=== PATIENT | female | born 1950 | race Caucasian/White ===

== ENCOUNTER 2018-03-06 07:41 | Inpatient (IN) | payer MEDICARE, MEDICAID ==
[2018-03-06] VITALS (8 sets, daily range): BP systolic 113–153; BP diastolic 59–90; PULSE 62–67; RESP 16–18; TEMP 98–98.4; O2SAT 92–99
[~2018-03-06] VITALS: Ht 149.9 cm; Wt 64.9 kg
[~2018-03-06 07:41] MED LIST: AMLO-280; CIPR500T4 PO; DIFL150T PO; GLUCTAB PO; MACR100C PO
[2018-03-06] MEDS ORDERED: ONDANSETRON HCL 4 MG/2 ML VIAL IVP ONE (08:30)
[2018-03-06] MEDS ORDERED: SODIUM CHLORIDE 0.9% FLUSH 10 ML FLUSH IV FLUSH PRN ×3 (08:30→13:45)
[2018-03-06] MEDS ORDERED: MORPHINE SULFATE 4 MG/ML INJ IV PUSH ONE (08:30)
--- NOTE | 2018-03-06 09:12 | PD ---
HPI . Chronic wound Chief Complaint: Wound/Suture/Staple Re-Check Time Seen by Provider: 08:07 Travel History International Travel<30 days: No Contact w/Intl Traveler<30days: No Traveled to known affect area: No History of Present Illness HPI This patient was sent to us by a rehab center for evaluation of a chronic wound on her right lower extremity. The nursing staff from rehab reported that they were concerned about the circulation in her right lower extremity. The patient is an extremely poor historian. She tells us that she has had the wound on her leg for "2 weeks." She does state that it is painful and rates it 10/10. The pain is exacerbated by palpation. Medical history is significant for end-stage renal disease on dialysis. She was supposed to be at dialysis today. She also has diabetes, hypertension, coronary artery disease, PAD, hepatitis C, depression/anxiety and dementia We have learned that the patient's armature varnisher is Dr. Rusty SCHUMACHER Past Medical History Anemia: Yes Anxiety: Yes Depression: Yes Congestive Heart Failure: Yes Coronary Artery Disease: Yes Diabetes: Yes Patient Takes Glucophage: No Dialysis: Yes Diminished Hearing: No Hepatitis: Yes (HEP C ) Past Surgical History Surgical History: Unable to Obtain Social History Alcohol Use: No Tobacco Use: No Substance Use: No Allergies-Medications (Allergen,Severity, Reaction): Coded Allergies: acetaminophen (Unverified Allergy, Unknown, 07/12/17) hydrocodone (Unverified Allergy, Unknown, 07/12/17) vomiting penicillin G (Unverified Allergy, Unknown, 07/12/17) hives Reported Meds & Prescriptions Reported Meds & Active Scripts Active Macrobid (Nitrofurantoin Macrocrystals) 100 Mg Cap 100 Mg PO BID Diflucan (Fluconazole) 150 Mg Tab 150 Mg PO Q3D Cipro (Ciprofloxacin HCl) 500 Mg Tab 500 Mg PO BID PRN Reported Metformin Hcl (Metformin HCl) 500 Mg Tab 500 Mg PO BID Exforge Hct (Ezretincco-Yqtfwdmpz-Dvywgosgd) 1 Tab Tab Review of Systems ROS Limitations: Poor Historian Physical Exam Narrative GENERAL: Awake and alert. SKIN: warm/dry. Large eschar on the right lateral prieto. It is deep and necrotic appearing. The eschar is black. The skin of her right foot is a little cool to the touch but not markedly so. There is a muriel discoloration. HEAD: Normocephalic. EYES: Pupils equal and round. No scleral icterus. No injection or drainage. ENT: No nasal bleeding or discharge. Mucous membranes pink and moist. NECK: Trachea midline. Full range of motion without pain.. CARDIOVASCULAR: Regular rate and rhythm. Right pedal pulses cannot be obtained with Doppler. RESPIRATORY: No accessory muscle use. Clear to auscultation. Breath sounds equal bilaterally. MUSCULOSKELETAL: No obvious deformities. NEUROLOGICAL: Awake and alert. No obvious cranial nerve deficits. Motor grossly within normal limits. Normal speech. PSYCHIATRIC: Appropriate mood and affect; insight and judgment normal. Data Data Last Documented VS Vital Signs Date Time Temp Pulse Resp B/P (MAP) Pulse Ox O2 Delivery O2 Flow Rate FiO2 03/06/18 08:07 67 18 03/06/18 08:07 98.0 125/60 (81) 93 Room Air Orders Orders Basic Metabolic Panel (Bmp) (03/06/18 08:19) Complete Blood Count With Diff (03/06/18 08:19) Lactic Acid (03/06/18 08:19) Iv Access Insert/Monitor (03/06/18 08:19) Morphine Inj (Morphine Inj) (03/06/18 08:30) Ondansetron Inj (Zofran Inj) (03/06/18 08:30) Sodium Chloride 0.9% Flush (Ns Flush) (03/06/18 08:30) Tibia/Fibula (Ap/Lat) (03/06/18 09:49) Labs Laboratory Tests Test 03/06/18 09:01 White Blood Count 11.0 TH/MM3 Red Blood Count 3.22 MIL/MM3 Hemoglobin 8.7 GM/DL Hematocrit 28.3 % Mean Corpuscular Volume 87.8 FL Mean Corpuscular Hemoglobin 26.9 PG Mean Corpuscular Hemoglobin Concent 30.6 % Red Cell Distribution Width 19.8 % Platelet Count 414 TH/MM3 Mean Platelet Volume 8.0 FL Neutrophils (%) (Auto) 83.6 % Lymphocytes (%) (Auto) 10.8 % Monocytes (%) (Auto) 4.5 % Eosinophils (%) (Auto) 0.4 % Basophils (%) (Auto) 0.7 % Neutrophils # (Auto) 9.2 TH/MM3 Lymphocytes # (Auto) 1.2 TH/MM3 Monocytes # (Auto) 0.5 TH/MM3 Eosinophils # (Auto) 0.0 TH/MM3 Basophils # (Auto) 0.1 TH/MM3 CBC Comment DIFF FINAL Differential Comment Blood Urea Nitrogen 40 MG/DL Creatinine 6.46 MG/DL Random Glucose 140 MG/DL Calcium Level 9.7 MG/DL Sodium Level 139 MEQ/L Potassium Level 4.5 MEQ/L Chloride Level 101 MEQ/L Carbon Dioxide Level 24.2 MEQ/L Anion Gap 14 MEQ/L Estimat Glomerular Filtration Rate 6 ML/MIN Lactic Acid Level 1.4 mmol/L MDM Medical Decision Making Medical Screen Exam Complete: Yes Emergency Medical Condition: Yes Medical Record Reviewed: Yes (She has a paucity of records in our system. She does have an ultrasound report that was sent with her from rehab which is dated 02/21. The report says that there is no blood flow through the right superficial femoral artery.) Differential Diagnosis Differential diagnosis includes but is not limited to chronic PAD, acute arterial occlusion, partial arterial occlusion Narrative Course This patient presents for the evaluation of blood flow to her right lower extremity. Ideally, we would get a CTA of her aorta with runoff studies. However, this patient is on dialysis. Thus far, I cannot be assured that she will dialyze today. I have ordered basic labs. I suspect that she will need to be admitted to the hospital for further evaluation of her arterial blood flow. I suspect that she will eventually need at least a BKA on the right. CBC & BMP Diagram 03/06/18 09:01 Calcium Level 9.7 LA 1.4 A normal white blood count and a normal lactic acid leads me to believe that her problems are chronic rather than acute. However, she needs further interrogation of her arterial blood flow to her right lower extremity. She may very well need an amputation. Therefore, I will ask for admission to the hospital. Physician Communication Physician Communication Dr. Contreras Diagnosis Primary Impression: PAD (peripheral artery disease) Additional Impression: Ulcer of right lower leg Qualified Codes: L97.919 - Non-pressure chronic ulcer of unspecified part of right lower leg with unspecified severity Admitting Information Admitting Physician Requests: Observation Condition: Stable Dulce Fields MD Mar 06, 2018 09:12
[2018-03-06 09:17] LABS: AUTOMATED NEUTROPHIL # 9.2 TH/MM3 (1.8-7.7); BASOPHIL # 0.1 TH/MM3 (0-0.2); BASOPHIL % 0.7 % (0.0-2.0); EOSINOPHIL % 0.4 % (0.0-4.0); HEMATOCRIT 28.3 % (35.0-46.0); HEMOGLOBIN 8.7 GM/DL (11.6-15.3); LYMPH % 10.8 % (9.0-44.0); LYMPHOCYTE # 1.2 TH/MM3 (1.0-4.8); MEAN CELL VOLUME 87.8 FL (80.0-100.0); MEAN CORPUSCULAR HEMOGLOBIN 26.9 PG (27.0-34.0); MEAN CORPUSCULAR HGB CONC 30.6 % (32.0-36.0); MONO % 4.5 % (0.0-8.0); MONOCYTE # 0.5 TH/MM3 (0-0.9); NEUT % 83.6 % (16.0-70.0); PLATELET COUNT 414 TH/MM3 (150-450); RED BLOOD COUNT 3.22 MIL/MM3 (4.00-5.30); RED CELL DISTRIBUTION WIDTH 19.8 % (11.6-17.2)
[2018-03-06 09:36] LABS: BICARBONATE 24.2 MEQ/L (21.0-32.0); CALCIUM 9.7 MG/DL (8.5-10.1); CREATININE 6.46 MG/DL (0.50-1.00)
--- NOTE | 2018-03-06 10:29 | HHI.HP ---
[facility] Service Family Medicine Primary Care Physician Vega Rankin MD Admission Diagnosis Pulseless RLE Diagnoses: International Travel<30 Days: No Contact w/Intl Traveler<30days: No Known Affected Area: No History of Present Illness The patient is 67 year old female who presents to the ED from [facility] for evaluation of a chronic wound on her right lower extremity. Per patient, she has had the wound for approximately three week. Patient, at baseline, is alert but confused. She is a poor historian. Rehabilitation facility was contacted for history. Patient has recently been hospitalized at [facility], where she received treatment for cellulitis and her chronic ulcer on the right lower extremity; management included wound vac. She was discharged on February 16 and admitted to [facility]. A lower extremity Doppler , performed on 02/21, found occlusion of the right superficial femoral artery. The rehab facility had since been trying to make an appointment for patient with vascular surgery. Of note, patient has ESRD and receives dialysis on MWF at [facility] in [place]. Patient's first crusher is Dr. Ojeda. Patient underwent psych evaluation while at rehab facility; she was found to be very depressed, suffer from excessive worry and anxiety, delusions and paranoia. She was also noted to have cognitive impairment. (Christina Munoz MD R1) Review of Systems ROS Limitations: Poor Historian (Negative ROS except pain involving right lower extremity ulcer. 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 Reported Medications Zinc Sulfate 220 Mg Tab 220 Mg PO DAILY Vitamin C (Ascorbic Acid) 250 Mg Chew 500 Mg CHEW BID Tramadol (Tramadol HCl) 50 Mg Tab 50 Mg PO Q6H PRN Renvela (Sevelamer Carbonate) 800 Mg Tab 800 Mg PO TID Quetiapine (Quetiapine Fumarate) 50 Mg Tab 50 Mg PO HS Quetiapine (Quetiapine Fumarate) 25 Mg Tab 25 Mg PO BID Nitroglycerin SL (Nitroglycerin) 0.4 Mg Subl 0.4 Mg SL DIRECTED PRN Nephro-José Miguel Rx (Vitamin B Cmplx/Vit C/Folic AC) 1 Tab 1 Tab PO DAILY Multi-Vitamin Daily (Multiple Vitamin) 1 Tab Tab 1 Tab PO DAILY Losartan (Losartan Potassium) 25 Mg Tab 25 Mg PO DAILY Lactulose Liq (Lactulose) 10 Gm/15 Ml Soln 15 Ml PO BID Isosorbide Mononitrate 20 Mg Tab 30 Mg PO DAILY Humalog Inj (Insulin Human Lispro) 1,000 Unit/10 Ml Vial 5 Units SQ DAILY Lantus Inj (Insulin Glargine) 1,000 Unit/10 Ml Vial 20 Units SQ HS Furosemide 40 Mg Tab 40 Mg PO BID Effexor XR 24 HR (Venlafaxine HCl) 75 Mg Cap 75 Mg PO DAILY Clopidogrel (Clopidogrel Bisulfate) 75 Mg Tab 75 Mg PO DAILY Carvedilol 12.5 Mg Tab 12.5 Mg PO BID Atorvastatin (Atorvastatin Calcium) 40 Mg Tab 40 Mg PO HS Aspirin 81 Low Dose (Aspirin) 81 Mg Chew 81 Mg CHEW DAILY Amiodarone (Amiodarone HCl) 200 Mg Tab 200 Mg PO DAILY Alprazolam 0.25 Mg Tab 0.25 Mg PO BID PRN (Christina Munoz MD R1) Allergies: Coded Allergies: acetaminophen (Unverified Allergy, Unknown, 07/12/17) hydrocodone (Unverified Allergy, Unknown, 07/12/17) vomiting penicillin G (Unverified Allergy, Unknown, 07/12/17) hives Active Ordered Medications Current Medications Medications (Trade) Dose Ordered Sig/Rica Route Start Time Stop Time Status Last Admin (NS Flush) 2 ml UNSCH PRN IV FLUSH 03/06/18 10:45 (NS Flush) 2 ml BID IV FLUSH 03/06/18 21:00 Sodium Chloride 1,000 ml @ 0 mls/hr Q0M PRN OTHER 03/06/18 13:41 (Heparin Inj) 8,000 units UNSCH PRN IV FLUSH 03/06/18 13:45 Sodium Chloride 1,000 ml @ 200 mls/hr Q5H PRN IV 03/06/18 13:41 Sodium Chloride 1,000 ml @ 0 mls/hr Q0M PRN OTHER 03/06/18 13:41 (Mannitol Inj) 12.5 gm UNSCH PRN IV 03/06/18 13:45 Albumin Human 100 ml @ 60 mls/hr UNSCH PRN IV 03/06/18 13:45 (NS Flush) 5 ml UNSCH PRN IV FLUSH 03/06/18 13:45 (Heparin Inj) UNSCH PRN .XX 03/06/18 13:45 (Gentamicin Inj) 20 mg UNSCH PRN OTHER 03/06/18 13:45 (Zofran Inj) 4 mg UNSCH PRN IV PUSH 03/06/18 13:45 (Benadryl) 25 mg UNSCH PRN PO 03/06/18 13:45 (Nitrostat Sl) 0.4 mg UNSCH PRN SL 03/06/18 13:45 (Catapres) 0.1 mg UNSCH PRN PO 03/06/18 13:45 (Epogen Inj) 4,000 units UNSCH PRN IV PUSH 03/06/18 13:45 (Gelfoam 12 Mm/7 Mm Top) 1 foam UNSCH PRN TOP 03/06/18 13:45 (Zofran Inj) 4 mg Q6H PRN IVP 03/06/18 14:45 (Ultram) 50 mg Q4H PRN PO 03/06/18 14:45 (Ultram) 100 mg Q4H PRN PO 03/06/18 14:45 (Narcan Inj) 0.4 mg UNSCH PRN IV PUSH 03/06/18 14:45 (Shonda-Colace) 1 tab BID PO 03/06/18 21:00 (Milk Of Magnesia Liq) 30 ml Q12H PRN PO 03/06/18 14:45 (Senokot) 17.2 mg Q12H PRN PO 03/06/18 14:45 (Dulcolax Supp) 10 mg DAILY PRN RECTAL 03/06/18 14:45 (Lactulose Liq) 30 ml DAILY PRN PO 03/06/18 14:45 (Xanax) 0.25 mg BID PRN PO 03/06/18 15:00 (Cordarone) 200 mg DAILY PO 03/07/18 09:00 (Aspirin Chew) 81 mg DAILY CHEW 03/07/18 09:00 (Lipitor) 40 mg HS PO 03/06/18 21:00 (Coreg) 12.5 mg BID PO 03/06/18 21:00 (Lasix) 40 mg BID PO 03/06/18 21:00 UNV (Ismo) 30 mg DAILY PO 03/07/18 09:00 UNV (Lactulose Liq) 15 ml BID PO 03/06/18 21:00 (Cozaar) 25 mg DAILY PO 03/07/18 09:00 UNV (Nitrostat Sl) 0.4 mg Q5M PRN SL 03/06/18 15:00 UNV (SEROquel) 25 mg BID PO 03/06/18 21:00 UNV (Effexor Xr) 75 mg DAILY PO 03/07/18 09:00 (Nephrocaps) 1 cap DAILY PO 03/07/18 09:00 (Zinc Sulfate) 220 mg DAILY PO 03/07/18 09:00 (Vitamin C) 500 mg BID PO 03/06/18 21:00 (Theragran) 1 tab DAILY PO 03/07/18 09:00 Non-Formulary Medication 50 mg HS PO 03/06/18 21:00 UNV (Levemir Inj) 10 units HS SQ 03/06/18 21:00 (NovoLOG SUPPLEMENTAL SCALE) 1 ACHS SLIDING SCALE SQ 03/06/18 17:00 UNV Sodium Thiosulfate 83756 mg/Sterile Water 200 ml @ 150 mls/hr WITH DIALYSIS PRN IV 03/06/18 15:30 UNV (Renvela) 1,600 mg TID PO 03/06/18 18:00 UNV Family History Unable to obtain. Social History Has been living at [facility] since February 16, following discharge from [facility]. (Christina Munoz MD R1) Physical Exam Vital Signs Vital Signs Date Time Temp Pulse Resp B/P (MAP) Pulse Ox O2 Delivery O2 Flow Rate FiO2 03/06/18 13:50 63 17 133/59 (83) 97 03/06/18 11:43 Room Air 03/06/18 08:07 98.0 Physical Exam GENERAL: This is a well-nourished, well-developed patient, in no apparent distress. SKIN: Warm and dry. See below for description of right LE. HEAD: Atraumatic. Normocephalic. EYES: Pupils equal round. Extraocular motions intact. No scleral icterus. No injection or drainage. ENT: Nose without bleeding, purulent drainage or septal hematoma. Airway patent. NECK: Trachea midline. No JVD or lymphadenopathy. Supple, nontender, no meningeal signs. CARDIOVASCULAR: Regular rate and rhythm without murmurs, gallops, or rubs. RESPIRATORY: Clear to auscultation. Breath sounds equal bilaterally. No wheezes , rales, or rhonchi. GASTROINTESTINAL: Abdomen soft, non-tender, nondistended. No hepato-splenomegaly , or palpable masses. No guarding. MUSCULOSKELETAL: Large, dry ulceration with eschar on the right anterior to lateral lower extremity, extending from below knee to above ankle. Edema of right foot noted. Right foot also with dry scaly skin. Palpable right and left femoral pulses. Nonpalpable right dorsalis pedis and posterior tibialis pulses. Capillary refill normal except delayed in right second phalanx. Motor function of left foot intact but patient not wiggling toes on right - unsure of ability. Sensation appears to be intact bilaterally. NEUROLOGICAL: Awake and confused. Cranial nerves II through XII intact. Normal speech. Laboratory Laboratory Tests Test 03/06/18 09:01 White Blood Count 11.0 Red Blood Count 3.22 Hemoglobin 8.7 Hematocrit 28.3 Mean Corpuscular Volume 87.8 Mean Corpuscular Hemoglobin 26.9 Mean Corpuscular Hemoglobin Concent 30.6 Red Cell Distribution Width 19.8 Platelet Count 414 Mean Platelet Volume 8.0 Neutrophils (%) (Auto) 83.6 Lymphocytes (%) (Auto) 10.8 Monocytes (%) (Auto) 4.5 Eosinophils (%) (Auto) 0.4 Basophils (%) (Auto) 0.7 Neutrophils # (Auto) 9.2 Lymphocytes # (Auto) 1.2 Monocytes # (Auto) 0.5 Eosinophils # (Auto) 0.0 Basophils # (Auto) 0.1 CBC Comment DIFF FINAL Differential Comment Blood Urea Nitrogen 40 Creatinine 6.46 Random Glucose 140 Calcium Level 9.7 Sodium Level 139 Potassium Level 4.5 Chloride Level 101 Carbon Dioxide Level 24.2 Anion Gap 14 Estimat Glomerular Filtration Rate 6 Lactic Acid Level 1.4 (Christina Munoz MD R1) Result Diagram: 03/06/18 0903/06/18 09 Caprini VTE Risk Assessment Caprini VTE Risk Assessment: Mod/High Risk (score >= 2) Caprini Risk Assessment Model Point Value = 1 Point Value = 2 Point Value = 3 Point Value = 5 Age 41-60 Minor surgery BMI > 25 kg/m2 Swollen legs Varicose veins or History of unexplained or recurrent spontaneous Oral contraceptives or hormone replacement Sepsis (< 1 month) Serious lung disease, including pneumonia (< 1 month) Abnormal pulmonary function Acute myocardial infarction Congestive heart failure (< 1 month) History of inflammatory bowel disease Medical patient at bed rest Age 61-74 Arthroscopic surgery Major open surgery (> 45 min) Laparoscopic surgery (> 45 min) Malignancy Confined to bed (> 72 hours) Immobilizing plaster cast Central venous access Age >= 75 History of VTE Family history of VTE Factor V Leiden Prothrombin [id number] Lupus anticoagulant Anticardiolipin antibodies Elevated serum homocysteine Heparin-induced thrombocytopenia Other congenital or acquired thrombophilia Stroke (< 1 month) Elective arthroplasty Hip, pelvis, or leg fracture Acute spinal cord injury (< 1 month) Prophylaxis Regimen Total Risk Factor Score Risk Level Prophylaxis Regimen 0-1 Low Early ambulation 2 Moderate Order ONE of the following: *Sequential Compression Device (SCD) *Heparin 5000 units SQ BID 3-4 Higher Order ONE of the following medications: *Heparin 5000 units SQ TID *Enoxaparin/Lovenox 40 mg SQ daily (WT < 150 kg, CrCl > 30 mL/min) *Enoxaparin/Lovenox 30 mg SQ daily (WT < 150 kg, CrCl > 10-29 mL/min) *Enoxaparin/Lovenox 30 mg SQ BID (WT < 150 kg, CrCl > 30 mL/min) AND/OR *Sequential Compression Device (SCD) 5 or more Highest Order ONE of the following medications: *Heparin 5000 units SQ TID (Preferred with Epidurals) *Enoxaparin/Lovenox 40 mg SQ daily (WT < 150 kg, CrCl > 30 mL/min) *Enoxaparin/Lovenox 30 mg SQ daily (WT < 150 kg, CrCl > 10-29 mL/min) *Enoxaparin/Lovenox 30 mg SQ BID (WT < 150 kg, CrCl > 30 mL/min) AND *Sequential Compression Device (SCD) (Christina Munoz MD R1) Assessment and Plan Assessment and Plan The patient is 67 year old female who presents to the ED from [facility] for evaluation of a chronic wound on her right lower extremity. No dorsalis pedis and posterior tibialis pulses palpable on right. Vascular surgery consulted. Code Status Full code. Discussed Condition With Drs. Johnson and Annette. (Christina Munoz MD R1) Attending Attestation Patient seen, examined, and discussed with Dr Munoz, while in the ER. I agree with assessment and management as documented and discussed with me. The patient has been seen and examined. The chart and all resident notes have been reviewed. I agree that inpatient care is appropriate and that a two midnight stay is expected for the reasons documented in the resident history and physical. I have discussed this with the resident and certify the resident s order for inpatient admission. Pt admitted from SNF after hospitalization at outside hospital. She is a poor historian, and no significant history is available. She is admitted for right lateral calf wound/ulcer, which is appears arterial in nature. CV surgery consulted; CTA reviewed. (Steffany Johnson MD) Problem List: (1) Ulcer of right lower leg ICD Codes: L97.919 - Non-pressure chronic ulcer of unspecified part of right lower leg with unspecified severity Status: Chronic Plan: Patient with large, dry ulceration with eschar on the right anterior to lateral lower extremity, extending from below knee to above ankle. Nonpalpable right dorsalis pedis and posterior tibialis pulses. Capillary refill delayed in right second phalanx. Patient with history of PAD. Likely contributing to chronic ulcer on right anterior-lateral lower extremity. Per report from rehabilitation facility, a lower extremity Doppler, performed on 02/21, found occlusion of the right superficial femoral artery. Orders: * Consult vascular surgery: Planning a R LE angiogram with potential revascularization for early this week; continue wound care, continue pain control. * Consult wound care. Awaiting recommendations. Recommendations per records from rehabilitation facility: cleanse right lateral calf wound with NS, apply Dakin solution 1/4 strength, wet/moist cover with ABD wrap with andree BID. * Consult PT. Evaluate and treat. Imaging: * CTA Runoff with IV Contrast to be completed today prior to dialysis. Medications: * Tramadol 50mg q4hr PO PRN Pain 1-10. * Tramadol 100mg q4hr PO PRN Breakthrough pain. (2) PAD (peripheral artery disease) ICD Codes: I73.9 - Peripheral vascular disease, unspecified Status: Chronic Plan: Patient with history of PAD. Likely contributing to chronic ulcer on right anterior-lateral lower extremity. * See Plan for Ulcer of right lower leg. (3) ESRD (end stage renal disease) on dialysis ICD Codes: N18.6 - End stage renal disease; Z99.2 - Dependence on renal dialysis Status: Chronic Plan: Patient with history of ESRD. She receives dialysis on MWF at [facility] in [place]. Patient's first crusher is Dr. Ojeda. * Consult nephrology. * Dialysis per nephrology. (4) Diabetes mellitus ICD Codes: E11.9 - Type 2 diabetes mellitus without complications Plan: Patient with history of DM Type II; recent HgbA1C 8.2. * Levemir 10 units HS. * Low dose sliding scale. * May consider increasing to home regimen after 24hr blood glucose monitoring. (5) Cardiovascular disease ICD Codes: I25.10 - Atherosclerotic heart disease of [place] coronary artery without angina pectoris Plan: Patient with history of CHF (combined systolic and diastolic), CAD and HTN. * Continue home medications. (6) Hepatitis C ICD Codes: B19.20 - Unspecified viral hepatitis C without hepatic coma Status: Chronic Plan: Patient with history of chronic hepatitis C; disease course unknown. * CMP in a.m. (7) Psychiatric disorder ICD Codes: F99 - Mental disorder, not otherwise specified Status: Chronic Plan: Patient with history of psychotic disorder with delusions (unknown psychological condition), depression, dementia. Alert but confused at baseline per rehabilitation facility. * Continue home medications. (8) Fluid, Electrolyte, Nutrition, and Prophylaxis Status: Acute Plan: Fluid: * Not indicated at this time. Electrolyte: * Monitor and replete as necessary. Nutrition: * Renal diet. Prophylaxis: * SCD on left. * Held Heparin for possible revascularization procedure and Hgb 8.7. (Christina Munoz MD R1) Problem Qualifiers (1) Ulcer of right lower leg: Qualified Codes: L97.919 - Non-pressure chronic ulcer of unspecified part of right lower leg with unspecified severity Christina Munoz MD R1 Mar 06, 2018 10:28 Steffany Johnson MD Mar 06, 2018 20:24
--- NOTE | 2018-03-06 10:31 | RADRPT ---
EXAM DATE/TIME: 03/06/2018 09:58 [facility] COMPARISON: No previous studies available for comparison. INDICATIONS : Right tib/fib anterior asceptic necrosis. MEDICAL HISTORY : Diabetes. SURGICAL HISTORY : None. ENCOUNTER: Initial ACUITY: 1 day PAIN SCORE: 9/10 LOCATION: Right tib/fib FINDINGS: Osseous structures are osteopenic. There is no bony destruction or periosteal reaction to suggest ost eomyelitis. Prominent vascular calcification is present. Joint spaces are maintained. CONCLUSION: Negative examination of the tibia Ludwig Titus MD on March 06, 2018 at 10:26 Board Certified Radiologist. This report was verified electronically.
[2018-03-06] MEDS ORDERED: AMIO200T PO (12:04)
[2018-03-06] MEDS ORDERED: HUMALOG SQ (12:04)
[2018-03-06] MEDS ORDERED: LACT10SO PO (12:04)
[2018-03-06] MEDS ORDERED: VENL75XR PO (12:04)
[2018-03-06] MEDS ORDERED: ISOS20TA PO (12:04)
[2018-03-06] MEDS ORDERED: CLOP75TA PO (12:04)
[2018-03-06] MEDS ORDERED: FURO40TA PO (12:04)
[2018-03-06] MEDS ORDERED: ASPI1CHW4 CHEW (12:04)
[2018-03-06] MEDS ORDERED: NITR1SUB3 SL (12:04)
[2018-03-06] MEDS ORDERED: QUET1TAB7 PO (12:04)
[2018-03-06] MEDS ORDERED: NEPHRO PO (12:04)
[2018-03-06] MEDS ORDERED: SEVEL800 PO (12:04)
[2018-03-06] MEDS ORDERED: VITA250C3 CHEW (12:04)
[2018-03-06] MEDS ORDERED: ALPR0.25 PO (12:04)
[2018-03-06] MEDS ORDERED: ZINC220T PO (12:04)
[2018-03-06] MEDS ORDERED: TRAM50TA PO (12:04)
[2018-03-06] MEDS ORDERED: ATOR40TA16 PO (12:04)
[2018-03-06] MEDS ORDERED: MULT-65 PO (12:04)
[2018-03-06] MEDS ORDERED: QUET5TAB PO (12:04)
[2018-03-06] MEDS ORDERED: CARV12.52 PO (12:04)
[2018-03-06] MEDS ORDERED: LANTUS2P SQ (12:04)
[2018-03-06] MEDS ORDERED: LOSA25TA PO (12:04)
[2018-03-06] MEDS ORDERED: SODIUM CHLOR 0.9% 1000 ML INJ 1,000 ML IV PRN (13:41)
[2018-03-06] MEDS ORDERED: SODIUM CHLOR 0.9% 1000 ML INJ 1,000 ML OTHER PRN ×2 (13:41)
--- NOTE | 2018-03-06 13:44 | PD.VS.CON ---
History of Present Illness Chief Complaint: Large Non healing R LE ulceration for an unknown duration Non palpable R LE distal pulses Consult Requested by: Dr. 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 Family History Unable to obtain (Tahmina Hoffmann) Home Medications Reported Medications Zinc Sulfate (Zinc Sulfate) 220 Mg Tab, 220 MG PO DAILY for Nutritional Supplement, TAB 0 Refills 03/06/18 Ascorbic Acid (Vitamin C) 250 Mg Chew, 500 MG CHEW BID for Nutritional Supplement, TAB 0 Refills 03/06/18 Tramadol (Tramadol) 50 Mg Tab, 50 MG PO Q6H Y for PAIN, TAB 0 Refills 03/06/18 Sevelamer Carbonate (Renvela) 800 Mg Tab, 800 MG PO TID for Control phosphorous levels, TAB 0 Refills 03/06/18 Quetiapine (Quetiapine) 50 Mg Tab, 50 MG PO HS, TAB 0 Refills 03/06/18 Quetiapine (Quetiapine) 25 Mg Tab, 25 MG PO BID, TAB 0 Refills 03/06/18 Nitroglycerin SL (Nitroglycerin SL) 0.4 Mg Subl, 0.4 MG SL DIRECTED Y for CHEST PAIN, TAB.SL 0 Refills ONE TABLET UNDER THE TONGUE NEEDED FOR CHEST PAIN, MAY REPEAT EVERY FIVE MINUTES FOR A TOTAL OF 3 DOSES OR CALL 911 IF NO RELIEF 03/06/18 Vitamin B Cmplx/Vit C/Folic AC (Nephro-José Miguel Rx) 1 Tab, 1 TAB PO DAILY, TAB 4/9/18 Multiple Vitamin (Multi-Vitamin Daily) 1 Tab Tab, 1 TAB PO DAILY for Nutritional Supplement, TAB 0 Refills 03/06/18 Losartan (Losartan) 25 Mg Tab, 25 MG PO DAILY for Blood Pressure Management, TAB 0 Refills 03/06/18 Lactulose Liq (Lactulose Liq) 10 Gm/15 Ml Soln, 15 ML PO BID, ML 0 Refills 03/06/18 Isosorbide Mononitrate (Isosorbide Mononitrate) 20 Mg Tab, 30 MG PO DAILY for Prevent Chest Pain, TAB 0 Refills Take 2 doses 7 hours apart. 03/06/18 Insulin Lispro (Human) Inj (Humalog Inj) 1,000 Unit/10 Ml Vial, 5 UNITS SQ DAILY for Blood Sugar Management, #1 VIAL 0 Refills 03/06/18 Insulin Glargine Inj (Lantus Inj) 1,000 Unit/10 Ml Vial, 20 UNITS SQ HS for Blood Sugar Management, VIAL 0 Refills 03/06/18 Furosemide (Furosemide) 40 Mg Tab, 40 MG PO BID, TAB 0 Refills 03/06/18 Venlafaxine ER 24 HR (Effexor XR 24 HR) 75 Mg Cap, 75 MG PO DAILY, CAP 0 Refills 03/06/18 Clopidogrel (Clopidogrel) 75 Mg Tab, 75 MG PO DAILY for Blood Clot Prevention, TAB 0 Refills 03/06/18 Carvedilol (Carvedilol) 12.5 Mg Tab, 12.5 MG PO BID, TAB 0 Refills 03/06/18 Atorvastatin (Atorvastatin) 40 Mg Tab, 40 MG PO HS for Cholesterol Management, TAB 0 Refills 03/06/18 Aspirin (Aspirin 81 Low Dose) 81 Mg Chew, 81 MG CHEW DAILY, TAB 03/06/18 Amiodarone (Amiodarone) 200 Mg Tab, 200 MG PO DAILY for Regulate Heart Beat, TAB 0 Refills 03/06/18 Alprazolam (Alprazolam) 0.25 Mg Tab, 0.25 MG PO BID Y for ANXIETY, TAB 0 Refills 03/06/18 Coded Allergies: acetaminophen (Unverified Allergy, Unknown, 07/12/17) hydrocodone (Unverified Allergy, Unknown, 07/12/17) vomiting penicillin G (Unverified Allergy, Unknown, 07/12/17) hives Review of Systems ROS Limitations: Poor Historian Constitutional: DENIES: Fever, Chills Cardiovascular: COMPLAINS OF: Lower Extremity Edema (Right foot with 1+ pitting edema ), DENIES: Claudication Integumentary: COMPLAINS OF: Abnormal pigmentation (Dry large ulceration with eschar (anterior to lateral aspect of R LE) ) Psychiatric: COMPLAINS OF: Confusion (Tahmina Hoffmann) Physical Exam Vitals/I&O Date Time Temp Pulse Resp B/P (MAP) Pulse Ox O2 Delivery O2 Flow Rate FiO2 03/06/18 11:43 65 18 133/59 (83) 94 Room Air 03/06/18 08:07 67 18 03/06/18 08:07 98.0 67 18 125/60 (81) 93 Room Air 03/06/18 08:02 98.0 67 18 125/60 (81) 94 Neuro: Alert and confused HEENT: JOSE Neck: No JVD distention Heart: RRR Lungs: CTA Abdomen: S/NT Vascular: PALPABLE R/L Femoral pulses NON palpable RIGHT DP/PT Monophasic RIGHT DP Faint monophasic RIGHT PT Biphasic LEFT DP/PT LE warm w/ motor intact Large dry ulceration with eschar (anterior to lateral aspect) from below the knee to ankle region Ulceration appears chronic (Tahmina Hoffmann) Laboratory Tests Test 03/06/18 09:01 White Blood Count 11.0 Red Blood Count 3.22 Hemoglobin 8.7 Hematocrit 28.3 Mean Corpuscular Volume 87.8 Mean Corpuscular Hemoglobin 26.9 Mean Corpuscular Hemoglobin Concent 30.6 Red Cell Distribution Width 19.8 Platelet Count 414 Mean Platelet Volume 8.0 Neutrophils (%) (Auto) 83.6 Lymphocytes (%) (Auto) 10.8 Monocytes (%) (Auto) 4.5 Eosinophils (%) (Auto) 0.4 Basophils (%) (Auto) 0.7 Neutrophils # (Auto) 9.2 Lymphocytes # (Auto) 1.2 Monocytes # (Auto) 0.5 Eosinophils # (Auto) 0.0 Basophils # (Auto) 0.1 CBC Comment DIFF FINAL Differential Comment Blood Urea Nitrogen 40 Creatinine 6.46 Random Glucose 140 Calcium Level 9.7 Sodium Level 139 Potassium Level 4.5 Chloride Level 101 Carbon Dioxide Level 24.2 Anion Gap 14 Estimat Glomerular Filtration Rate 6 Lactic Acid Level 1.4 Last 48 hours Impressions Tibia/Fibula X-Ray 03/06/18 0949 Signed Impressions: Service Date/Time: Tuesday, March 06, 2018 09:58 - CONCLUSION: Negative examination of the tibia Ludwig Titus MD (Tahmina Hoffmann) Assessment and Plan Assessment: (1) PAD (peripheral artery disease) Status: Chronic (2) Ulcer of right lower leg Status: Chronic Plan Pleasantly confused 67/F who appears to have a chronic non healing ulceration to her R LE Pt with non palpable distal pulses LE warm w/ motor intact Plan Planning a R LE angiogram with potential revascularization for early this week Continue wound care Continue pain control Tahmina Hoffmann CRM CAMPAIGN MANAGER [facility] [phone] (Tahmina Hoffmann) Plan Pt with extensive R LE tissue loss by report - she would not allow me to undress the wound today. Unclear if she ambulates given dementia. Will see wound with next wound change, coordinate with wound care. Will follow. Jermaine Zamarripa MD FACS [employer]PV[employer] service transformer repair supervisor [facility] - Heart and Vascular Surgery at [facility] [address] [phone] (Jermaine Zamarripa MD) Problem Qualifiers (1) Ulcer of right lower leg: Qualified Codes: L97.919 - Non-pressure chronic ulcer of unspecified part of right lower leg with unspecified severity Tahmina Hoffmann Mar 06, 2018 13:44 Jermaine Zamarripa MD Mar 07, 2018 07:57
[2018-03-06] MEDS ORDERED: cloNIDine HCL 0.1 MG TAB PO PRN (13:45)
[2018-03-06] MEDS ORDERED: GELATIN 12 MM/7 MM FOAM TOP PRN (13:45)
[2018-03-06] MEDS ORDERED: NITROGLYCERIN 0.4 MG SL 25 TABS/BTL SL PRN ×2 (13:45→15:00)
[2018-03-06] MEDS ORDERED: diphenhydrAMINE HCL 25 MG CAP PO PRN (13:45)
[2018-03-06] MEDS ORDERED: GENTAMICIN SULFATE 20 MG/2 ML VIAL OTHER PRN (13:45)
[2018-03-06] MEDS ORDERED: ONDANSETRON HCL 4 MG/2 ML VIAL IV PUSH PRN (13:45)
[2018-03-06] MEDS ORDERED: MANNITOL 12.5 GM/50 ML VIAL IV PRN (13:45)
[2018-03-06] MEDS ORDERED: HEPARIN SODIUM - IV 10,000 UNITS/10 ML VIAL PRN (13:45)
[2018-03-06] MEDS ORDERED: EPOETIN ALFA 10,000 UNITS/ML VIAL IV PUSH PRN (13:45)
[2018-03-06] MEDS ORDERED: ALBUMIN 25% INJ 100 ML IV PRN (13:45)
[2018-03-06] MEDS ORDERED: HEPARIN SODIUM - IV 10,000 UNITS/10 ML VIAL IV FLUSH PRN (13:45)
[2018-03-06] MEDS ORDERED: LACTULOSE SYRUP 20 GM/30 ML CUP PO PRN (14:45)
[2018-03-06] MEDS ORDERED: traMADol HCL 50 MG TAB PO PRN ×2 (14:45)
[2018-03-06] MEDS ORDERED: SENNOSIDES 8.6 MG TAB PO PRN (14:45)
[2018-03-06] MEDS ORDERED: BISACODYL 10 MG SUPP RECTAL PRN (14:45)
[2018-03-06] MEDS ORDERED: MAGNESIUM HYDROXIDE SUSP 30 ML CUP PO PRN (14:45)
[2018-03-06] MEDS ORDERED: ONDANSETRON HCL 4 MG/2 ML VIAL IVP PRN (14:45)
[2018-03-06] MEDS ORDERED: NALOXONE HCL 0.4 MG/ML AMP IV PUSH PRN (14:45)
[2018-03-06] MEDS ORDERED: HEPARIN SODIUM - SQ 10,000 UNITS/ML VIAL SQ SCH (15:00)
[2018-03-06] MEDS ORDERED: IOHEXOL 350 MG/ML 10 ML VIAL (for RAD DIAG) IVCONTRAST ONE ×2 (15:14→17:54)
--- NOTE | 2018-03-06 15:25 | PD.CONS ---
HPI Service Nephrology Consult Requested By Reason for Consult ESRD Primary Care Physician Vega Rankin MD History of Present Illness Patient is a 67 year old white female with diabetes, Calciphylaxis, Hypertension , AMS, who is a patient of Dr. Ojeda on hemodialysis, Tuesday, Tuesday and Tuesday who had AMS, lower leg wounds, multiple skin deposits, admitted underwent CTA. 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 SKIN: Warm and dry. HEAD: Normocephalic. EYES: No scleral icterus. No injection or drainage. NECK: Supple, trachea midline. No JVD or lymphadenopathy. CARDIOVASCULAR: Regular rate and rhythm without murmurs, gallops, or rubs. RESPIRATORY: Breath sounds equal bilaterally. No accessory muscle use. GASTROINTESTINAL: Abdomen soft, non-tender, nondistended. EXTREMITIES: No cyanosis, or edema. large Rt leg wound, skin deposits NEUROLOGICAL: Awake, confused Laboratory Laboratory Tests Test 03/06/18 09:01 White Blood Count 11.0 Red Blood Count 3.22 Hemoglobin 8.7 Hematocrit 28.3 Mean Corpuscular Volume 87.8 Mean Corpuscular Hemoglobin 26.9 Mean Corpuscular Hemoglobin Concent 30.6 Red Cell Distribution Width 19.8 Platelet Count 414 Mean Platelet Volume 8.0 Neutrophils (%) (Auto) 83.6 Lymphocytes (%) (Auto) 10.8 Monocytes (%) (Auto) 4.5 Eosinophils (%) (Auto) 0.4 Basophils (%) (Auto) 0.7 Neutrophils # (Auto) 9.2 Lymphocytes # (Auto) 1.2 Monocytes # (Auto) 0.5 Eosinophils # (Auto) 0.0 Basophils # (Auto) 0.1 CBC Comment DIFF FINAL Differential Comment Blood Urea Nitrogen 40 Creatinine 6.46 Random Glucose 140 Calcium Level 9.7 Sodium Level 139 Potassium Level 4.5 Chloride Level 101 Carbon Dioxide Level 24.2 Anion Gap 14 Estimat Glomerular Filtration Rate 6 Lactic Acid Level 1.4 Result Diagram: 03/06/1890003/06/18 09 Assessment and Plan Problem List: (1) ESRD (end stage renal disease) on dialysis ICD Codes: N18.6 - End stage renal disease; Z99.2 - Dependence on renal dialysis Status: Chronic Plan: 67 Year old with ESRD on HD Calciphylaxis large rt leg wound Seen during hemodialysis 2 L of ultrafiltration CTA done Hemodialysis today (2) Calciphylaxis ICD Codes: E83.59 - Other disorders of calcium metabolism Plan: continue Na Thiosulfate (3) Ulcer of right lower leg ICD Codes: L97.919 - Non-pressure chronic ulcer of unspecified part of right lower leg with unspecified severity Status: Chronic Plan: Vascular following (4) PAD (peripheral artery disease) ICD Codes: I73.9 - Peripheral vascular disease, unspecified Status: Chronic Plan: as above Problem Qualifiers (1) Ulcer of right lower leg: Qualified Codes: L97.919 - Non-pressure chronic ulcer of unspecified part of right lower leg with unspecified severity Celine Cervantes MD Mar 06, 2018 15:25
[2018-03-06] MEDS: INSULIN ASPART SUPPLEMENTAL SCALE SQ SCH ×2 (17:00→21:00)
[2018-03-06] MEDS: FUROSEMIDE 40 MG TAB PO SCH (18:00)
[2018-03-06] MEDS ORDERED: SEVELAMER CARBONATE 800 MG TAB PO SCH (18:00)
[2018-03-06] MEDS: SEVELAMER CARBONATE 800 MG TAB PO SCH (18:00)
--- NOTE | 2018-03-06 18:12 | RADRPT ---
EXAM DATE/TIME: 03/06/2018 14:50 [place] COMPARISON: No previous studies available for comparison. INDICATIONS : Chronicwound on right lower extremity IV CONTRAST: 96 cc Omnipaque 350 (iohexol) IV RADIATION DOSE: 13.34 CTDIvol (mGy) MEDICAL HISTORY : Congestive heart failure. Cardiovascular disease Renal failure, chronic.Diabetes hepc SURGICAL HISTORY : Hysterectomy. ENCOUNTER: Initial ACUITY: 2 weeks PAIN SCALE: 10/10 LOCATION: [place] TECHNIQUE: Volumetric scanning was performed using a multi-row detector CT scanner. The data was post processed with a variety of visualization algorithms including full volume maximum intensity projection, multi -planar sliding thin slab reformation, curved planar reformation, and surface rendering techniques. Using automated exposure control and adjustment of the mA and/or kV according to patient size, radiat ion dose was kept as low as reasonably achievable to obtain optimal diagnostic quality images. DICO M format image data is available electronically for review and comparison. FINDINGS: AORTA: Diffuse atherosclerotic calcifications of the infrarenal aorta with diffuse mild aortic stenosis. No aneurysm. VISCERAL ARTERIES: Single bilateral renal arteries. Mild stenosis of the left renal artery origin secondary to calcified plaque. Moderate to severe stenosis of the right renal artery origin secondary to bulky calcified pl aque. The celiac and SMA are patent. VIRAJ is patent. RIGHT LEG: INFLOW: No iliac inflow stenosis. Diffuse plaque in the distal common femoral artery with mild stenosis. OUTFLOW: Profunda is patent. SFA is occluded near the origin and reconstitutes in parts in the distal thigh ne ar the abductor canal. The distal SFA and popliteal arteries are diffusely diseased with tandem sever e focal stenoses of the popliteal artery. RUNOFF: Heavily calcified runoff vessels with runoff via primarily anterior tibial artery. The tibioperoneal trunk is diffusely diseased. The peroneal artery is diffusely diseased in the proximal calf. Posterio r tibial artery is occluded. LEFT LEG: INFLOW: No iliac inflow stenosis. Eccentric mixed plaque in the common femoral artery with diffuse mild steno sis. OUTFLOW: Profunda is patent. SFA is diffusely diseased with tandem severe stenoses throughout the thigh. Above -knee popliteal artery is occluded with reconstitution of the popliteal artery at the level of the kn ee. Below knee popliteal artery is heavily calcified RUNOFF: Heavily calcified runoff vessels with runoff primarily via the anterior tibial and peroneal arteries. The tibioperoneal trunk is oblique calcified and diffusely disease. Posterior tibial arteries occlud ed in the proximal calf. GENERAL FINDINGS: Visualized lung bases are clear. Evaluation of the abdominal viscera is limited due to arterial phase technique. Gallbladder surgically absent. Liver is grossly unremarkable with reflux of contrast into the hepatic veins likely reflecting some degree of right heart dysfunction. Spleen is grossly unrema rkable. Adrenal glands and pancreas are unremarkable. Kidneys are symmetrical in size with 7 mm calci fied calculus in the mid right kidney and exophytic densely calcified lesion arising from the inferio r pole of the left kidney. Bowel appears grossly unremarkable. There is trace ascites with fluid prim arily along the margins of the liver. No focal drainable fluid collections or free air. Bladder is mildly distended but otherwise unremarkable. Prostate and seminal vesicles are within norm al limits. Degenerative spondylosis of the lumbar spine. CONCLUSION: 1. Diffuse atherosclerotic plaque in the infrarenal aorta without significant aortic occlusive diseas e. 2. No significant iliac inflow stenosis. 3. Heavily calcified diffusely diseased bilateral superficial femoral arteries. The right SFA is occl uded at the origin. The left SFA is severely diffusely stenosed. 4. Diffusely diseased bilateral popliteal arteries with occlusion of the above-knee popliteal artery on the left. 5. Heavily calcified limited runoff bilaterally. Runoff on the right is primarily via the anterior ti bial artery with discontinuous peroneal artery. Runoff on the left is via the anterior tibial and per stevenson arteries. 6. Densely peripherally calcified exophytic lesion arising from the few pole of the left kidney which is incompletely evaluated due to arterial phase technique only. Further evaluation may be performed with renal mass MRI exam as clinically indicated. 7. Ancillary findings include 7 mm nonobstructing calyceal renal calculus in the mid right kidney, tr jonathan ascites, and degenerative spondylosis of the lumbar spine. Franky Patel MD on March 06, 2018 at 17:57 Board Certified Radiologist. This report was verified electronically.
[2018-03-06] MEDS: SODIUM THIOSULFATE INJ 25,000 MG in WATER STERILE FOR INJ 100 ML IV PRN (19:30)
[2018-03-06] MEDS: INSULIN DETEMIR 100 UNITS/ML VIAL SQ SCH (21:00)
[2018-03-06] MEDS: LACTULOSE SYRUP 20 GM/30 ML CUP PO SCH (21:44)
[2018-03-06] MEDS: CARVEDILOL 12.5 MG TAB PO SCH (21:44)
[2018-03-06] MEDS: ALPRAZolam 0.25 MG TAB PO PRN (21:44)
[2018-03-06] MEDS: ATORVASTATIN 40 MG TAB PO SCH (21:45)
[2018-03-06] MEDS: ASCORBIC ACID 500 MG TAB PO SCH (21:45)
[2018-03-06] MEDS: DOCUSATE SODIUM 50 MG/SENNA 8.6 MG TAB PO SCH (21:45)
[2018-03-06] MEDS: SODIUM CHLORIDE 0.9% FLUSH 10 ML FLUSH IV FLUSH SCH (21:45)
[2018-03-06] MEDS: QUEtiapine FUMARATE 25 MG TAB PO SCH ×2 (22:10)
[2018-03-06] MEDS: SODIUM HYPOCHLORITE 0.25% 500 ML BTL TOPICAL SCH (23:30)
[2018-03-07] VITALS (13 sets, daily range): BP systolic 100–143; BP diastolic 56–65; PULSE 62–93; RESP 16–19; TEMP 97.2–98.3; O2SAT 92–95
[2018-03-07] MEDS: ISOSORBIDE MONONITRATE 20 MG TAB PO SCH (07:00)
[2018-03-07 07:09] LABS: AUTOMATED NEUTROPHIL # 8.7 TH/MM3 (1.8-7.7); BASOPHIL # 0.1 TH/MM3 (0-0.2); BASOPHIL % 0.8 % (0.0-2.0); EOSINOPHIL # 0.1 TH/MM3 (0-0.4); HEMATOCRIT 26.7 % (35.0-46.0); HEMOGLOBIN 8.5 GM/DL (11.6-15.3); LYMPH % 15.9 % (9.0-44.0); LYMPHOCYTE # 1.8 TH/MM3 (1.0-4.8); MEAN CELL VOLUME 86.5 FL (80.0-100.0); MEAN CORPUSCULAR HEMOGLOBIN 27.5 PG (27.0-34.0); MEAN CORPUSCULAR HGB CONC 31.8 % (32.0-36.0); MONO % 5.5 % (0.0-8.0); MONOCYTE # 0.6 TH/MM3 (0-0.9); NEUT % 76.8 % (16.0-70.0); PLATELET COUNT 421 TH/MM3 (150-450); RED BLOOD COUNT 3.09 MIL/MM3 (4.00-5.30); RED CELL DISTRIBUTION WIDTH 19.8 % (11.6-17.2); WHITE BLOOD COUNT 11.3 TH/MM3 (4.0-11.0)
[2018-03-07 07:42] LABS: ALBUMIN 2.2 GM/DL (3.4-5.0); BICARBONATE 27.3 MEQ/L (21.0-32.0); BLOOD UREA NITROGEN 20 MG/DL (7-18); CALCIUM 9.2 MG/DL (8.5-10.1); CHLORIDE 101 MEQ/L (98-107); CREATININE 4.24 MG/DL (0.50-1.00); GLOMERULAR FILTRATION RATE 11 ML/MIN (>89); GLUCOSE,RANDOM 73 MG/DL (74-106); SODIUM (NA) 141 MEQ/L (136-145)
[2018-03-07 07:44] LABS: ALT (GPT) 23 U/L (10-53); AST (GOT) 19 U/L (15-37); PHOSPHORUS 3.1 MG/DL (2.5-4.9)
[2018-03-07 07:46] LABS: ALKALINE PHOSPHATASE 122 U/L (45-117); TOTAL BILIRUBIN ADULT 0.5 MG/DL (0.2-1.0); TOTAL PROTEIN 7.1 GM/DL (6.4-8.2)
--- NOTE | 2018-03-07 07:55 | EKG ---
Date Performed: 03/07/2018 Time Performed: 08:04:32 PTAGE: 67 years EKG: Baseline artifact present Sinus rhythm ANTEROSEPTAL MYOCARDIAL INFARCTION , OF INDETERMINATE AGE Nonspecific intraventricular conduction de fect ABNORMAL ECG No significant change from prior electrocardiogram. PREVIOUS TRACING : 03/07/2018 07.22 DOCTOR: Beto Montalvo Interpretating Date/Time 03/07/2018 08:31:07
[2018-03-07] MEDS: INSULIN ASPART SUPPLEMENTAL SCALE SQ SCH ×4 (08:00→20:04)
--- NOTE | 2018-03-07 08:57 | PD.WOU.CON ---
Patient Intake Chief Complaint Right LE Eschar Consult Requested by Dr. Payton Reason for Consult Right lower extremity wound Primary Care Physician Vega Rankin MD History of Present Illness Consulted by Dr. Payton for evaluation and treatment of patient's right lower extremity wound. Patient is a poor historian and is somewhat confused and keeps crying out unintelligible phrases. Her medical history significant for end-stage renal disease on dialysis. She also has a history of type 2 diabetes , hypertension, CAD, PAD, hepatitis C, depression anxiety and dementia. The rest of her history was obtained from medical records. Coded Allergies: acetaminophen (Unverified Allergy, Unknown, 07/12/17) hydrocodone (Unverified Allergy, Unknown, 07/12/17) vomiting penicillin G (Unverified Allergy, Unknown, 07/12/17) hives Preferred Language to Discuss: Moldovan Barriers to Learning: Cognitive/Written, Cognitive/Verbal Teaching Method: Discussion Vital Signs Date Time Temp Pulse Resp B/P (MAP) Pulse Ox O2 Delivery O2 Flow Rate FiO2 03/07/18 04:20 97.5 66 16 127/57 (80) 94 03/07/18 04:00 63 03/07/18 00:40 97.2 63 16 131/61 (84) 92 03/07/18 00:00 62 03/07/18 00:00 Room Air 03/06/18 21:33 21 03/06/18 21:15 64 03/06/18 21:02 03/06/18 20:40 98.4 64 16 153/63 (93) 92 03/06/18 19:37 65 18 152/90 (110) 99 Room Air 03/06/18 16:16 03/06/18 15:42 62 18 113/68 (83) 95 Room Air 03/06/18 13:50 63 17 133/59 (83) 97 03/06/18 11:43 65 18 133/59 (83) 94 Room Air Pain scale used: 0-10 numeric scale Pain score: 0 Past, Family & Social History Past Medical History Endocrine: REPORTS HX OF: Diabetes mellitus Cardiovascular: REPORTS HX OF: Hypertension, Peripheral vascular dz Genitourinary: REPORTS HX OF: Hemodialysis Gynecologic: REPORTS HX OF: Other obstetrician and gynaecologist history (total hysterectomy) Infectious Disease: REPORTS HX OF: Hepatitis Neurologic: REPORTS HX OF: Dementia Alcohol Use Alcohol Intake: None Substance Use Substance Use: Denies use Review of Systems Genitourinary: COMPLAINS OF: Renal disease, Dialysis Integumentary: COMPLAINS OF: Slow to heal after cuts Wound Assessment Bed bound at this time Wound Information - Wound One 03/07/2018: Wound dimensions this week are 23.3 cm x 10 cm by eschar. Wound was cleaned with normal saline and then painted with povidone iodine. ABD pad applied and 4 x 4 gauze pad secured with roll gauze and tape. As this is an eschar and the patient has peripheral vascular disease, no debridement was done. Orders written. Wound Location: Right lower extremity Wound Type: Ischemic Classification: Other Wound Length: 23.3cm Wound Width: 10cm Wound Depth: Eschar Photo Taken: No Exudate: None Exudate Type: N/A Debridement: No Fibrin Amount: None Granulation Tissue Color: None Granulation Tissue Texture: N/A Exposed: No exposed bone, muscle, tendon Eschar: Yes Odor: No Dressings: Abdominal Pad Physical Exam Remarks GENERAL: Well-nourished, well-developed patient. SKIN: Warm and dry.See wound assessment notes HEAD: Normocephalic. EYES: No scleral icterus. No injection or drainage. NECK: Supple, trachea midline. No JVD or lymphadenopathy. CARDIOVASCULAR: Regular rate and rhythm without murmurs, gallops, or rubs. RESPIRATORY: Breath sounds equal bilaterally. No accessory muscle use. GASTROINTESTINAL: Abdomen soft, non-tender, nondistended. EXTREMITIES: No cyanosis, or edema. NEUROLOGICAL: Awake and confused Lab and Radiology Results Radiology Last Impressions Tibia/Fibula X-Ray 03/06/18 0949 Signed Impressions: Service Date/Time: Tuesday, March 06, 2018 09:58 - CONCLUSION: Negative examination of the tibia Ludwig Titus MD Aorta w/Runoff CTA 03/06/18 0000 Signed Impressions: Service Date/Time: Tuesday, March 06, 2018 14:50 - CONCLUSION: 1. Diffuse atherosclerotic plaque in the infrarenal aorta without significant aortic occlusive disease. 2. No significant iliac inflow stenosis. 3. Heavily calcified diffusely diseased bilateral superficial femoral arteries. The right SFA is occluded at the origin. The left SFA is severely diffusely stenosed. 4. Diffusely diseased bilateral popliteal arteries with occlusion of the above- knee popliteal artery on the left. 5. Heavily calcified limited runoff bilaterally. Runoff on the right is primarily via the anterior tibial artery with discontinuous peroneal artery. Runoff on the left is via the anterior tibial and peroneal arteries. 6. Densely peripherally calcified exophytic lesion arising from the few pole of the left kidney which is incompletely evaluated due to arterial phase technique only. Further evaluation may be performed with renal mass MRI exam as clinically indicated. 7. Ancillary findings include 7 mm nonobstructing calyceal renal calculus in the mid right kidney, trace ascites, and degenerative spondylosis of the lumbar spine. Franky Patel MD Assessment/Plan Problem List: (1) Eschar of lower leg Status: Chronic Plan: Wound was cleaned with normal saline and then painted with povidone iodine. ABD pad applied and 4 x 4 gauze pad secured with roll gauze and tape. As this is an eschar and the patient has peripheral vascular disease, no debridement was done. Orders written. (2) Diabetes mellitus Status: Chronic Plan: ADA diet as well as medication compliance reiterated. (3) Dementia Status: Chronic Plan: Chronic but stable. (4) Peripheral vascular disease Status: Chronic Plan: Chronic and because of her ulceration. Patient will be seen by vascular. Problem Qualifiers (1) Diabetes mellitus: (2) Dementia: Qualified Codes: F03.90 - Unspecified dementia without behavioral disturbance Stephanie Briones MD Mar 07, 2018 08:57
[2018-03-07] MEDS: SODIUM HYPOCHLORITE 0.25% 500 ML BTL TOPICAL SCH ×2 (09:00→19:47)
[2018-03-07] MEDS: LACTULOSE SYRUP 20 GM/30 ML CUP PO SCH ×2 (09:00→19:43)
[2018-03-07] MEDS: SODIUM CHLORIDE 0.9% FLUSH 10 ML FLUSH IV FLUSH SCH ×2 (10:05→20:06)
[2018-03-07] MEDS: CARVEDILOL 12.5 MG TAB PO SCH ×2 (10:05→20:06)
[2018-03-07] MEDS: LOSARTAN 25 MG TAB PO SCH (10:05)
[2018-03-07] MEDS: ASPIRIN 81 MG CHEW TAB CHEW SCH (10:05)
[2018-03-07] MEDS: AMIODARONE 200 MG TAB PO SCH (10:05)
[2018-03-07] MEDS: VENLAFAXINE HCL XR 75 MG CAP PO SCH (10:05)
[2018-03-07] MEDS: VITAMIN B CMPLX/VITC/FOLIC AC CAP PO SCH (10:06)
[2018-03-07] MEDS: FUROSEMIDE 40 MG TAB PO SCH ×2 (10:06→18:17)
[2018-03-07] MEDS: DOCUSATE SODIUM 50 MG/SENNA 8.6 MG TAB PO SCH ×2 (10:06→19:44)
[2018-03-07] MEDS: SEVELAMER CARBONATE 800 MG TAB PO SCH ×3 (10:06→18:17)
[2018-03-07] MEDS: QUEtiapine FUMARATE 25 MG TAB PO SCH ×3 (10:06→19:47)
[2018-03-07] MEDS: ZINC SULFATE 220 MG CAP PO SCH (10:07)
[2018-03-07] MEDS: ASCORBIC ACID 500 MG TAB PO SCH ×2 (10:07→19:44)
[2018-03-07] MEDS: MULTIVITAMIN TAB PO SCH (10:07)
--- NOTE | 2018-03-07 11:16 | PD.WCN.NOT ---
Wound Consult Description: Patient seen with Doctor Briones for wound care physician consult for RLE Communicated with: BERNARDINO Zepeda [address] and Doctor Briones Recommendation: Please apply Povidone-iodine to eschar only as ordered by Doctor Briones cover with ABD pad and dry 4x4 gauze, secured with rolled gauze and tape.Change dressing BID Additional Information: Patient seen on [address] with Doctor Briones and newspaper writer for RLE. Patient is being followed by vascular surgery and was recently seen by Tahmina GILBERT Vascular surgery.Vascular surgery is planning a R LE angiogram with potential revascularization for early this week.Ortiz is laying in bed for wound assessment. RLE wound is noted open to air. Wound presents with 90% coverage of black dry eschar and ~10% dry white tissue. Wound measures 23.3x 10x eschar.Wound was painted with povidone-iodine. Applied ABD pad, and 4x4 gauze pad, secured with rolled gauze and tape.Doctor Briones does not recommend debridement at this time. Want to keep eschar dry and intact. Recommendations are noted above. Bárbara Ugarte [facility] Mar 07, 2018 11:16
--- NOTE | 2018-03-07 12:44 | HHI.FPPN ---
Subjective Remarks Patient was seen and evaluated this morning. She reports feeling well. She denies leg pain but when right leg is moved and bandage is removed, she voices feeling pain. She denies chest pain, shortness of breath, nausea, vomiting, diarrhea and constipation. All questions were answered. (Christina Munoz MD R1) Objective Vitals Vital Signs Date Time Temp Pulse Resp B/P (MAP) Pulse Ox O2 Delivery O2 Flow Rate FiO2 03/07/18 11:04 94 21 03/07/18 08:08 98.3 75 19 100/58 (72) 94 03/07/18 08:00 72 03/07/18 04:20 97.5 66 16 127/57 (80) 94 03/07/18 04:00 63 03/07/18 00:40 97.2 63 16 131/61 (84) 92 03/07/18 00:00 62 03/07/18 00:00 Room Air 03/06/18 21:33 21 03/06/18 21:15 64 03/06/18 21:02 03/06/18 20:40 98.4 64 16 153/63 (93) 92 03/06/18 19:37 65 18 152/90 (110) 99 Room Air 03/06/18 16:16 03/06/18 15:42 62 18 113/68 (83) 95 Room Air 03/06/18 13:50 63 17 133/59 (83) 97 I/O 03/06/18 03/06/18 03/06/18 03/07/18 03/07/18 03/07/18 07:00 15:00 23:00 07:00 15:00 23:00 Intake Total 120 ml Output Total 2000 ml 0 ml Balance -2000 ml 120 ml Intake Oral 120 ml Output Urine Total 0 ml Hemodialysis 2000 ml # Bowel Movements 0 (Christina Munoz MD R1) Result Diagram: 03/07/18 0643 03/07/18 0645 Imaging Last 72 hours Impressions Tibia/Fibula X-Ray 03/06/18 0949 Signed Impressions: Service Date/Time: Tuesday, March 06, 2018 09:58 - CONCLUSION: Negative examination of the tibia Ludwig Titus MD Aorta w/Runoff CTA 03/06/18 0000 Signed Impressions: Service Date/Time: Tuesday, March 06, 2018 14:50 - CONCLUSION: 1. Diffuse atherosclerotic plaque in the infrarenal aorta without significant aortic occlusive disease. 2. No significant iliac inflow stenosis. 3. Heavily calcified diffusely diseased bilateral superficial femoral arteries. The right SFA is occluded at the origin. The left SFA is severely diffusely stenosed. 4. Diffusely diseased bilateral popliteal arteries with occlusion of the above- knee popliteal artery on the left. 5. Heavily calcified limited runoff bilaterally. Runoff on the right is primarily via the anterior tibial artery with discontinuous peroneal artery. Runoff on the left is via the anterior tibial and peroneal arteries. 6. Densely peripherally calcified exophytic lesion arising from the few pole of the left kidney which is incompletely evaluated due to arterial phase technique only. Further evaluation may be performed with renal mass MRI exam as clinically indicated. 7. Ancillary findings include 7 mm nonobstructing calyceal renal calculus in the mid right kidney, trace ascites, and degenerative spondylosis of the lumbar spine. Franky Patel MD Objective Remarks GENERAL: This is a well-nourished, well-developed patient, in no apparent distress. SKIN: Warm and dry. See below for description of right LE. HEAD: Atraumatic. Normocephalic. EYES: Pupils equal round. Extraocular motions intact. No scleral icterus. No injection or drainage. ENT: Nose without bleeding, purulent drainage or septal hematoma. Airway patent. NECK: Supple, nontender, no meningeal signs. CARDIOVASCULAR: Regular rate and rhythm without murmurs, gallops, or rubs. RESPIRATORY: Clear to auscultation. Breath sounds equal bilaterally. No wheezes , rales, or rhonchi. GASTROINTESTINAL: Positive bowel sounds. Abdomen soft, non-tender and nondistended. MUSCULOSKELETAL: Large, dry ulceration with eschar on the right anterior to lateral lower extremity, extending from below knee to above ankle. Edema of right foot noted. Right foot also with dry scaly skin. Palpable right and left femoral pulses. Nonpalpable right dorsalis pedis and posterior tibialis pulses. Motor function of left foot intact but patient not wiggling toes on right - unsure of ability. Sensation appears to be intact bilaterally. NEUROLOGICAL: Awake and confused. Normal speech. Medications and IVs Current Medications Medications (Trade) Dose Ordered Sig/Rica Route Start Time Stop Time Status Last Admin (NS Flush) 2 ml UNSCH PRN IV FLUSH 03/06/18 10:45 (NS Flush) 2 ml BID IV FLUSH 03/06/18 21:00 03/07/18 10:05 Sodium Chloride 1,000 ml @ 0 mls/hr Q0M PRN OTHER 03/06/18 13:41 (Heparin Inj) 8,000 units UNSCH PRN IV FLUSH 03/06/18 13:45 Sodium Chloride 1,000 ml @ 200 mls/hr Q5H PRN IV 03/06/18 13:41 Sodium Chloride 1,000 ml @ 0 mls/hr Q0M PRN OTHER 03/06/18 13:41 (Mannitol Inj) 12.5 gm UNSCH PRN IV 03/06/18 13:45 Albumin Human 100 ml @ 60 mls/hr UNSCH PRN IV 03/06/18 13:45 (NS Flush) 5 ml UNSCH PRN IV FLUSH 03/06/18 13:45 (Heparin Inj) UNSCH PRN .XX 03/06/18 13:45 (Gentamicin Inj) 20 mg UNSCH PRN OTHER 03/06/18 13:45 (Zofran Inj) 4 mg UNSCH PRN IV PUSH 03/06/18 13:45 (Benadryl) 25 mg UNSCH PRN PO 03/06/18 13:45 (Nitrostat Sl) 0.4 mg UNSCH PRN SL 03/06/18 13:45 (Catapres) 0.1 mg UNSCH PRN PO 03/06/18 13:45 (Epogen Inj) 4,000 units UNSCH PRN IV PUSH 03/06/18 13:45 (Gelfoam 12 Mm/7 Mm Top) 1 foam UNSCH PRN TOP 03/06/18 13:45 (Zofran Inj) 4 mg Q6H PRN IVP 03/06/18 14:45 (Ultram) 50 mg Q4H PRN PO 03/06/18 14:45 (Ultram) 100 mg Q4H PRN PO 03/06/18 14:45 (Narcan Inj) 0.4 mg UNSCH PRN IV PUSH 03/06/18 14:45 (Shonda-Colace) 1 tab BID PO 03/06/18 21:00 03/07/18 10:06 (Milk Of Magnesia Liq) 30 ml Q12H PRN PO 03/06/18 14:45 (Senokot) 17.2 mg Q12H PRN PO 03/06/18 14:45 (Dulcolax Supp) 10 mg DAILY PRN RECTAL 03/06/18 14:45 (Lactulose Liq) 30 ml DAILY PRN PO 03/06/18 14:45 (Xanax) 0.25 mg BID PRN PO 03/06/18 15:00 03/06/18 21:44 (Cordarone) 200 mg DAILY PO 03/07/18 09:00 03/07/18 10:05 (Aspirin Chew) 81 mg DAILY CHEW 03/07/18 09:00 03/07/18 10:05 (Lipitor) 40 mg HS PO 03/06/18 21:00 03/06/18 21:45 (Coreg) 12.5 mg BID PO 03/06/18 21:00 03/07/18 10:05 (Lasix) 40 mg BID@0900,1800 PO 03/06/18 18:00 03/07/18 10:06 (Ismo) 30 mg DAILY@0700 PO 03/07/18 07:00 (Lactulose Liq) 15 ml BID PO 03/06/18 21:00 03/06/18 21:44 (Cozaar) 25 mg DAILY PO 03/07/18 09:00 03/07/18 10:05 (Nitrostat Sl) 0.4 mg Q5M PRN SL 03/06/18 15:00 (SEROquel) 25 mg BID PO 03/06/18 21:00 03/07/18 10:06 (Effexor Xr) 75 mg DAILY PO 03/07/18 09:00 03/07/18 10:05 (Nephrocaps) 1 cap DAILY PO 03/07/18 09:00 03/07/18 10:06 (Zinc Sulfate) 220 mg DAILY PO 03/07/18 09:00 03/07/18 10:07 (Vitamin C) 500 mg BID PO 03/06/18 21:00 03/07/18 10:07 (Theragran) 1 tab DAILY PO 03/07/18 09:00 03/07/18 10:07 (SEROquel) 50 mg HS PO 03/06/18 21:00 03/06/18 22:10 (Levemir Inj) 10 units HS SQ 03/06/18 21:00 (NovoLOG SUPPLEMENTAL SCALE) 1 ACHS SLIDING SCALE SQ 03/06/18 17:00 Sodium Thiosulfate 44415 mg/Sterile Water 200 ml @ 150 mls/hr WITH DIALYSIS PRN IV 03/06/18 15:30 03/06/18 19:30 (Renvela) 1,600 mg TID PO 03/06/18 18:00 03/07/18 10:06 (Dakin'S 0.25% Soln) 50 ml BID TOPICAL 03/06/18 21:00 03/06/18 23:30 (Christina Munoz MD R1) Urinary Catheter: No (Christina Munoz MD R1) Vascular Central Line Catheter: No (Christina Munoz MD R1) A/P Assessment and Plan The patient is 67 year old female who presents to the ED from [facility] for evaluation of a chronic wound on her right lower extremity. No dorsalis pedis and posterior tibialis pulses palpable on right. Vascular surgery consulted. (Christina Munoz MD R1) Attending Attestation Patient seen and examined, discussed with resident team. I agree with assessment and management as documented and discussed with me. Pt seen with medicine team; wound care (Dr Briones) at bedside as well. Continue care as ordered. Appreciate vascular surgery. (Steffany Johnson MD) Problem List: (1) Ulcer of right lower leg ICD Codes: L97.919 - Non-pressure chronic ulcer of unspecified part of right lower leg with unspecified severity Status: Chronic Plan: Patient with large, dry ulceration with eschar on the right anterior to lateral lower extremity, extending from below knee to above ankle. Nonpalpable right dorsalis pedis and posterior tibialis pulses. Capillary refill delayed in right second phalanx. Patient with history of PAD. Likely contributing to chronic ulcer on right anterior-lateral lower extremity. Per report from rehabilitation facility, a lower extremity Doppler, performed on 02/21, found occlusion of the right superficial femoral artery. Orders: * Consult vascular surgery: Planning a R LE angiogram with potential revascularization for early this week; continue wound care, continue pain control. * Consult wound care: Please apply Povidone-iodine to eschar only as ordered by Doctor McNish cover with ABD pad and dry 4x4 gauze, secured with rolled gauze and tape.Change dressing BID. * Consult PT. Evaluate and treat. Imaging: * CTA Runoff with IV Contrast: * CONCLUSION: 1. Diffuse atherosclerotic plaque in the infrarenal aorta without significant aortic occlusive disease. 2. No significant iliac inflow stenosis. 3. Heavily calcified diffusely diseased bilateral superficial femoral arteries. The right SFA is occluded at the origin. The left SFA is severely diffusely stenosed. 4. Diffusely diseased bilateral popliteal arteries with occlusion of the above-knee popliteal artery on the left. 5. Heavily calcified limited runoff bilaterally. Runoff on the right is primarily via the anterior tibial artery with discontinuous peroneal artery. Runoff on the left is via the anterior tibial and peroneal arteries. 6. Densely peripherally calcified exophytic lesion arising from the few pole of the left kidney which is incompletely evaluated due to arterial phase technique only. Further evaluation may be performed with renal mass MRI exam as clinically indicated. 7. Ancillary findings include 7 mm nonobstructing calyceal renal calculus in the mid right kidney, trace ascites, and degenerative spondylosis of the lumbar spine. Medications: * Tramadol 50mg q4hr PO PRN Pain 1-10. * Tramadol 100mg q4hr PO PRN Breakthrough pain. (2) PAD (peripheral artery disease) ICD Codes: I73.9 - Peripheral vascular disease, unspecified Status: Chronic Plan: Patient with history of PAD. Likely contributing to chronic ulcer on right anterior-lateral lower extremity. * See Plan for Ulcer of right lower leg. (3) ESRD (end stage renal disease) on dialysis ICD Codes: N18.6 - End stage renal disease; Z99.2 - Dependence on renal dialysis Status: Chronic Plan: Patient with history of ESRD. She receives dialysis on MWF at [facility] in [place]. Patient's denial resolution specialist is Dr. Ojeda. * Consult nephrology. * Dialysis per nephrology. (4) Renal mass ICD Codes: N28.89 - Other specified disorders of kidney and ureter Status: Acute Plan: CTA Runoff with evidence of densely peripherally calcified exophytic lesion arising from the far pole of the left kidney which is incompletely evaluated due to arterial phase technique only. Further evaluation may be performed with renal mass MRI exam as clinically indicated. * Awaiting call-back from radiology to discuss MRI in patient with ESRD and necessity of imaging/alternative imaging options. (5) Diabetes mellitus ICD Codes: E11.9 - Type 2 diabetes mellitus without complications Plan: Patient with history of DM Type II; recent HgbA1C 8.2. * Levemir 10 units HS. * Low dose sliding scale. * May consider increasing to home regimen after 24hr blood glucose monitoring. (6) Cardiovascular disease ICD Codes: I25.10 - Atherosclerotic heart disease of viejas coronary artery without angina pectoris Plan: Patient with history of CHF (combined systolic and diastolic), CAD and HTN. * EKG: Baseline artifact present sinus rhythm. ANTEROSEPTAL MYOCARDIAL INFARCTION , OF INDETERMINATE AGE. Nonspecific intraventricular conduction defect. ABNORMAL ECG. No significant change from prior electrocardiogram. * Troponin x2: 0.02. Elevation may be due to ESRD. * Patient denies chest pain. * Additional EKGs and Troponin levels pending. Will monitor closely. (7) Hepatitis C ICD Codes: B19.20 - Unspecified viral hepatitis C without hepatic coma Status: Chronic Plan: Patient with history of chronic hepatitis C; disease course unknown. * CMP in a.m. 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 Alert but confused at baseline per rehabilitation facility. * Continue home medications. (9) Fluid, Electrolyte, Nutrition, and Prophylaxis Status: Acute Plan: Fluid: * Not indicated at this time. Electrolyte: * Monitor and replete as necessary. Nutrition: * Renal diet. Prophylaxis: * Ambulation. * SCD on left. * Consider chemical DVT prophylaxis. Awaiting vascular surgery plan. (Christina Munoz MD R1) Problem Qualifiers (1) Ulcer of right lower leg: Qualified Codes: L97.919 - Non-pressure chronic ulcer of unspecified part of right lower leg with unspecified severity Christina Munoz MD R1 Mar 07, 2018 12:44 Steffany Johnson MD Mar 08, 2018 12:35
--- NOTE | 2018-03-07 12:45 | EKG ---
Date Performed: 03/07/2018 Time Performed: 11:35:49 PTAGE: 67 years EKG: Marked baseline artifact Probable normal Sinus rhythm although EKG has marked artifact and I would repeat it. PREVIOUS TRACING : 03/07/2018 08.04 DOCTOR: Beto Montalvo Interpretating Date/Time 03/07/2018 12:44:43
--- NOTE | 2018-03-07 14:25 | RADRPT ---
EXAM DATE/TIME: 03/07/2018 00:00 [place] COMPARISON: No previous studies available for comparison. INDICATIONS : Pulseless Right Lower Extremity TECHNIQUE: Four-cuff ankle and brachial pressures were obtained. Pulse cuff waveform tracings of the ankles were recorded, and ankle-brachial indices were calculated. PRESSURES (mmHg): Brachial (arm): Right 130 Left SHUNT Ankle: Right N/A Left CNO >220 ELENO: Right N/A Left CNO TBI: Right 0.00 Left 0.25 PULSED CUFF WAVEFORMS: There is blunting of the waveforms at the level of the ankles bilaterally. CONCLUSION: Nondiagnostic evaluation on the right and critical limb ischemia on the left. CT angiography of the a bdominal aorta and lower extremities is recommended for further evaluation if clinically indicated. Ludwig Titus MD on March 07, 2018 at 14:22 Board Certified Radiologist. This report was verified electronically.
--- NOTE | 2018-03-07 14:47 | HHI.NPPN ---
Subjective History of Present Illness Patient is a 67-year-old white female with right leg wound ESRD skin deposit calciphylaxis Objective Data Data Vital Signs Date Time Temp Pulse Resp B/P (MAP) Pulse Ox O2 Delivery O2 Flow Rate FiO2 03/07/18 12:08 98.0 76 19 104/56 (72) 95 03/07/18 11:04 94 21 03/07/18 08:08 98.3 75 19 100/58 (72) 94 03/07/18 08:00 72 03/07/18 04:20 97.5 66 16 127/57 (80) 94 03/07/18 04:00 63 03/07/18 00:40 97.2 63 16 131/61 (84) 92 03/07/18 00:00 62 03/07/18 00:00 Room Air 03/06/18 21:33 21 03/06/18 21:15 64 03/06/18 21:02 03/06/18 20:40 98.4 64 16 153/63 (93) 92 03/06/18 19:37 65 18 152/90 (110) 99 Room Air 03/06/18 16:16 03/06/18 15:42 62 18 113/68 (83) 95 Room Air -: 03/07/18 0643 03/07/18 0645 Physical Exam General Appearance: Well Developed Neck Neck Exam: Neck Supple Pulmonary Resp Exam: Clear Bilaterally, Breath Sounds Equal Cardiology CV Exam: Regular, Normal Sinus Rhythm Gastrointestinal/Abdomen GI Exam: Soft, Non-Tender, Bowel Sounds Present Integumentary Skin Exam: Ulcer(s) Extremeties Extremities Exam: No Edema Neurologic Neuro Exam: Alert, Stuporous Assessment/Plan Problem List: (1) ESRD (end stage renal disease) on dialysis ICD Codes: N18.6 - End stage renal disease; Z99.2 - Dependence on renal dialysis Status: Chronic Plan: 67 Year old with ESRD on HD Calciphylaxis large rt leg wound CTA Hemodialysis ultrafiltration 2 L was done (2) Calciphylaxis ICD Codes: E83.59 - Other disorders of calcium metabolism Plan: continue Na Thiosulfate (3) Ulcer of right lower leg ICD Codes: L97.919 - Non-pressure chronic ulcer of unspecified part of right lower leg with unspecified severity Status: Chronic Plan: Vascular following (4) PAD (peripheral artery disease) ICD Codes: I73.9 - Peripheral vascular disease, unspecified Status: Chronic Plan: as above Problem Qualifiers (1) Ulcer of right lower leg: Qualified Codes: L97.919 - Non-pressure chronic ulcer of unspecified part of right lower leg with unspecified severity Celine Cervantes MD Mar 07, 2018 14:47
[2018-03-07 15:11] LABS: BACTERIA, URINE MOD /hpf; BILIRUBIN, URINE NEG (NEG); BLOOD, URINE MOD (NEG); GLUCOSE,URINE NEG (NEG); HYALINE CAST, URINE 25 /lpf (RARE); KETONE, URINE TRACE mg/dL (NEG); NITRITE,URINE NEG (NEG); URINE LEUKOCYTE ESTERASE LARGE (NEG)
[2018-03-07 15:32] LABS: URINE COLOR LIGHT-RED (YELLW/STRAW)
[2018-03-07] MEDS: ALPRAZolam 0.25 MG TAB PO PRN (18:18)
[2018-03-07] MEDS ORDERED: LORazepam 2 MG/ML VIAL IM ONE (19:00)
[2018-03-07] MEDS: ATORVASTATIN 40 MG TAB PO SCH (19:44)
[2018-03-07] MEDS: INSULIN DETEMIR 100 UNITS/ML VIAL SQ SCH (20:04)
[2018-03-08] VITALS (10 sets, daily range): BP systolic 136–146; BP diastolic 64–91; PULSE 58–77; RESP 18; TEMP 97.6–98.3; O2SAT 93–99
[2018-03-08 05:20] LABS: HEMATOCRIT 26.7 % (35.0-46.0); HEMOGLOBIN 8.4 GM/DL (11.6-15.3); MEAN CELL VOLUME 85.9 FL (80.0-100.0); MEAN CORPUSCULAR HGB CONC 31.4 % (32.0-36.0); MEAN PLATELET VOLUME 7.9 FL (7.0-11.0); PLATELET COUNT 409 TH/MM3 (150-450); RED BLOOD COUNT 3.11 MIL/MM3 (4.00-5.30); RED CELL DISTRIBUTION WIDTH 19.7 % (11.6-17.2)
[2018-03-08 05:49] LABS: BICARBONATE 28.9 MEQ/L (21.0-32.0); CALCIUM 9.5 MG/DL (8.5-10.1); CREATININE 5.56 MG/DL (0.50-1.00)
[2018-03-08] MEDS ORDERED: DEXTROSE 50% IN WATER 50 ML SYRINGE ONE (06:31)
[2018-03-08] MEDS ORDERED: DEXTROSE 50% IN WATER 50 ML VIAL(D50) IV PUSH PRN (06:45)
[2018-03-08] MEDS ORDERED: GLUCAGON 1 MG/ML VIAL IM PRN (06:45)
[2018-03-08] MEDS: ISOSORBIDE MONONITRATE 20 MG TAB PO SCH (06:59)
[2018-03-08] MEDS: SODIUM HYPOCHLORITE 0.25% 500 ML BTL TOPICAL SCH (07:55)
[2018-03-08] MEDS: INSULIN ASPART SUPPLEMENTAL SCALE SQ SCH ×3 (08:00→17:00)
[2018-03-08] MEDS: LACTULOSE SYRUP 20 GM/30 ML CUP PO SCH (09:00)
[2018-03-08] MEDS ORDERED: AZTREONAM INJ 1,000 MG in SODIUM CHLORIDE 0.9% INJ 100 ML IV SCH ×2 (10:00→16:00)
--- NOTE | 2018-03-08 10:09 | HHI.FPPN ---
Subjective Remarks Patient was seen and evaluated this morning. She reports feeling well. She questions the amount of testing that has been done over the past two days; indications explained. She denies leg pain. She denies chest pain, shortness of breath, nausea, vomiting, diarrhea and constipation. All questions were answered. (Christina Munoz MD R1) Objective Vitals Vital Signs Date Time Temp Pulse Resp B/P (MAP) Pulse Ox O2 Delivery O2 Flow Rate FiO2 03/08/18 08:03 98.3 61 18 146/65 (92) 96 03/08/18 06:52 59 18 143/66 (91) 94 03/08/18 04:00 61 03/08/18 03:41 97.6 77 18 136/91 (106) 98 03/08/18 03:36 Room Air 03/08/18 00:00 64 03/08/18 00:00 Room Air 03/07/18 20:00 71 03/07/18 20:00 Room Air 03/07/18 19:41 98.3 93 18 143/65 (91) 93 03/07/18 18:36 Room Air 03/07/18 16:08 98.1 77 19 106/60 (75) 95 03/07/18 16:00 69 03/07/18 14:00 Room Air 03/07/18 12:08 98.0 76 19 104/56 (72) 95 03/07/18 12:00 69 03/07/18 11:04 94 21 I/O 03/07/18 03/07/18 03/07/18 03/08/18 03/08/18 03/08/18 07:00 15:00 23:00 07:00 15:00 23:00 Intake Total 120 ml 420 ml 60 ml Output Total 0 ml Balance 120 ml 420 ml 60 ml Intake Oral 120 ml 420 ml 60 ml Output Urine Total 0 ml # Voids 1 2 # Bowel Movements 0 0 0 (Christina Munoz MD R1) Result Diagram: 03/08/18 0505 03/08/18 0750 Other Results Arterial Study CONCLUSION: Nondiagnostic evaluation on the right and critical limb ischemia on the left. CT angiography of the abdominal aorta and lower extremities is recommended for further evaluation if clinically indicated. Imaging Last 72 hours Impressions Tibia/Fibula X-Ray 03/06/18 9903 Signed Impressions: Service Date/Time: Tuesday, March 06, 2018 09:58 - CONCLUSION: Negative examination of the tibia Ludwig Titus MD Aorta w/Runoff CTA 03/06/18 0000 Signed Impressions: Service Date/Time: Tuesday, March 06, 2018 14:50 - CONCLUSION: 1. Diffuse atherosclerotic plaque in the infrarenal aorta without significant aortic occlusive disease. 2. No significant iliac inflow stenosis. 3. Heavily calcified diffusely diseased bilateral superficial femoral arteries. The right SFA is occluded at the origin. The left SFA is severely diffusely stenosed. 4. Diffusely diseased bilateral popliteal arteries with occlusion of the above- knee popliteal artery on the left. 5. Heavily calcified limited runoff bilaterally. Runoff on the right is primarily via the anterior tibial artery with discontinuous peroneal artery. Runoff on the left is via the anterior tibial and peroneal arteries. 6. Densely peripherally calcified exophytic lesion arising from the few pole of the left kidney which is incompletely evaluated due to arterial phase technique only. Further evaluation may be performed with renal mass MRI exam as clinically indicated. 7. Ancillary findings include 7 mm nonobstructing calyceal renal calculus in the mid right kidney, trace ascites, and degenerative spondylosis of the lumbar spine. Franky Patel MD Objective Remarks GENERAL: This is a well-nourished, well-developed patient, in no apparent distress. SKIN: Warm and dry. See below for description of right LE. HEAD: Atraumatic. Normocephalic. EYES: Pupils equal round. Extraocular motions intact. No scleral icterus. No injection or drainage. ENT: Nose without bleeding, purulent drainage or septal hematoma. Airway patent. NECK: Supple, nontender, no meningeal signs. CARDIOVASCULAR: Regular rate and rhythm without murmurs, gallops, or rubs. RESPIRATORY: Clear to auscultation. Breath sounds equal bilaterally. No wheezes , rales, or rhonchi. GASTROINTESTINAL: Positive bowel sounds. Abdomen soft, non-tender and nondistended. MUSCULOSKELETAL: Large, dry ulceration with eschar on the right anterior to lateral lower extremity, extending from below knee to above ankle. Erythema surrounding eschar now extending anteriorly and medially over distal extremity, above ankle. Edema of right foot noted. Right foot also with dry scaly skin. Palpable right and left femoral pulses. Nonpalpable right dorsalis pedis and posterior tibialis pulses. Motor function of left foot intact but patient not wiggling toes on right - unsure of ability. Sensation appears to be intact bilaterally. NEUROLOGICAL: Awake and confused. Normal speech. Medications and IVs Current Medications Medications (Trade) Dose Ordered Sig/Rica Route Start Time Stop Time Status Last Admin (NS Flush) 2 ml UNSCH PRN IV FLUSH 03/06/18 10:45 (NS Flush) 2 ml BID IV FLUSH 03/06/18 21:00 03/07/18 20:06 Sodium Chloride 1,000 ml @ 0 mls/hr Q0M PRN OTHER 03/06/18 13:41 (Heparin Inj) 8,000 units UNSCH PRN IV FLUSH 03/06/18 13:45 Sodium Chloride 1,000 ml @ 200 mls/hr Q5H PRN IV 03/06/18 13:41 Sodium Chloride 1,000 ml @ 0 mls/hr Q0M PRN OTHER 03/06/18 13:41 (Mannitol Inj) 12.5 gm UNSCH PRN IV 03/06/18 13:45 Albumin Human 100 ml @ 60 mls/hr UNSCH PRN IV 03/06/18 13:45 (NS Flush) 5 ml UNSCH PRN IV FLUSH 03/06/18 13:45 (Heparin Inj) UNSCH PRN .XX 03/06/18 13:45 (Gentamicin Inj) 20 mg UNSCH PRN OTHER 03/06/18 13:45 (Zofran Inj) 4 mg UNSCH PRN IV PUSH 03/06/18 13:45 (Benadryl) 25 mg UNSCH PRN PO 03/06/18 13:45 (Nitrostat Sl) 0.4 mg UNSCH PRN SL 03/06/18 13:45 (Catapres) 0.1 mg UNSCH PRN PO 03/06/18 13:45 (Epogen Inj) 4,000 units UNSCH PRN IV PUSH 03/06/18 13:45 (Gelfoam 12 Mm/7 Mm Top) 1 foam UNSCH PRN TOP 03/06/18 13:45 (Zofran Inj) 4 mg Q6H PRN IVP 03/06/18 14:45 (Ultram) 50 mg Q4H PRN PO 03/06/18 14:45 (Ultram) 100 mg Q4H PRN PO 03/06/18 14:45 (Narcan Inj) 0.4 mg UNSCH PRN IV PUSH 03/06/18 14:45 (Shonda-Colace) 1 tab BID PO 03/06/18 21:00 03/07/18 19:44 (Milk Of Magnesia Liq) 30 ml Q12H PRN PO 03/06/18 14:45 (Senokot) 17.2 mg Q12H PRN PO 03/06/18 14:45 (Dulcolax Supp) 10 mg DAILY PRN RECTAL 03/06/18 14:45 (Lactulose Liq) 30 ml DAILY PRN PO 03/06/18 14:45 (Xanax) 0.25 mg BID PRN PO 03/06/18 15:00 03/07/18 18:18 (Cordarone) 200 mg DAILY PO 03/07/18 09:00 03/07/18 10:05 (Aspirin Chew) 81 mg DAILY CHEW 03/07/18 09:00 03/07/18 10:05 (Lipitor) 40 mg HS PO 03/06/18 21:00 03/07/18 19:44 (Coreg) 12.5 mg BID PO 03/06/18 21:00 03/07/18 20:06 (Lasix) 40 mg BID@0900,1800 PO 03/06/18 18:00 03/07/18 18:17 (Ismo) 30 mg DAILY@0700 PO 03/07/18 07:00 (Lactulose Liq) 15 ml BID PO 03/06/18 21:00 03/07/18 19:43 (Cozaar) 25 mg DAILY PO 03/07/18 09:00 03/07/18 10:05 (Nitrostat Sl) 0.4 mg Q5M PRN SL 03/06/18 15:00 (SEROquel) 25 mg BID PO 03/06/18 21:00 03/07/18 19:47 (Effexor Xr) 75 mg DAILY PO 03/07/18 09:00 03/07/18 10:05 (Nephrocaps) 1 cap DAILY PO 03/07/18 09:00 03/07/18 10:06 (Zinc Sulfate) 220 mg DAILY PO 03/07/18 09:00 03/07/18 10:07 (Vitamin C) 500 mg BID PO 03/06/18 21:00 03/07/18 19:44 (Theragran) 1 tab DAILY PO 03/07/18 09:00 03/07/18 10:07 (SEROquel) 50 mg HS PO 03/06/18 21:00 03/07/18 19:47 (Levemir Inj) 10 units HS SQ 03/06/18 21:00 03/07/18 20:04 (NovoLOG SUPPLEMENTAL SCALE) 1 ACHS SLIDING SCALE SQ 03/06/18 17:00 03/07/18 20:04 Sodium Thiosulfate 00074 mg/Sterile Water 200 ml @ 150 mls/hr WITH DIALYSIS PRN IV 03/06/18 15:30 03/06/18 19:30 (Renvela) 1,600 mg TID PO 03/06/18 18:00 03/07/18 18:17 (Dakin'S 0.25% Soln) 50 ml BID TOPICAL 03/06/18 21:00 03/06/18 23:30 (D50w (Vial) Inj) 50 ml UNSCH PRN IV PUSH 03/08/18 06:45 03/08/18 06:47 (Glucagon Inj) 1 mg STAT PRN IM 03/08/18 06:45 (Heparin Inj) 5,000 units Q8H SQ 03/08/18 08:00 (Christina Munoz MD R1) Urinary Catheter: No (Christina Munoz MD R1) Vascular Central Line Catheter: No (Christina Munoz MD R1) A/P Assessment and Plan The patient is 67 year old female who presents to the ED from [facility] for evaluation of a chronic wound on her right lower extremity. No dorsalis pedis and posterior tibialis pulses palpable on right. Vascular surgery consulted. (Christina Munoz MD R1) Attending Attestation Patient seen, examined, and discussed with resident team. I agree with assessment and management as documented and discussed with me. WBC count increased slightly today, and more erythema noted around leg wound. Will initiate antibiotic treatment. (Steffany Johnson MD) Problem List: (1) Ulcer of right lower leg ICD Codes: L97.919 - Non-pressure chronic ulcer of unspecified part of right lower leg with unspecified severity Status: Chronic Plan: Patient with large, dry ulceration with eschar on the right anterior to lateral lower extremity, extending from below knee to above ankle. Erythema surrounding eschar now extending anteriorly and medially over distal extremity, above ankle. Nonpalpable right dorsalis pedis and posterior tibialis pulses. Capillary refill delayed in right second phalanx. Patient with history of PAD. Likely contributing to chronic ulcer on right anterior-lateral lower extremity. Per report from rehabilitation facility, a lower extremity Doppler, performed on 02/21, found occlusion of the right superficial femoral artery. Orders: * Consult vascular surgery: Planning a R LE angiogram with potential revascularization for early this week; continue wound care, continue pain control. * Consult wound care: Please apply Povidone-iodine to eschar only as ordered by Doctor JaminNish cover with ABD pad and dry 4x4 gauze, secured with rolled gauze and tape.Change dressing BID. * Consult PT. Evaluate and treat. Microbiology: * Blood culture pending. Imaging: * CTA Runoff with IV Contrast: * CONCLUSION: 1. Diffuse atherosclerotic plaque in the infrarenal aorta without significant aortic occlusive disease. 2. No significant iliac inflow stenosis. 3. Heavily calcified diffusely diseased bilateral superficial femoral arteries. The right SFA is occluded at the origin. The left SFA is severely diffusely stenosed. 4. Diffusely diseased bilateral popliteal arteries with occlusion of the above-knee popliteal artery on the left. 5. Heavily calcified limited runoff bilaterally. Runoff on the right is primarily via the anterior tibial artery with discontinuous peroneal artery. Runoff on the left is via the anterior tibial and peroneal arteries. 6. Densely peripherally calcified exophytic lesion arising from the few pole of the left kidney which is incompletely evaluated due to arterial phase technique only. Further evaluation may be performed with renal mass MRI exam as clinically indicated. 7. Ancillary findings include 7 mm nonobstructing calyceal renal calculus in the mid right kidney, trace ascites, and degenerative spondylosis of the lumbar spine. * Arterial Study: * CONCLUSION: Nondiagnostic evaluation on the right and critical limb ischemia on the left. CT angiography of the abdominal aorta and lower extremities is recommended for further evaluation if clinically indicated. Medications: * Tramadol 50mg q4hr PO PRN Pain 1-10. * Tramadol 100mg q4hr PO PRN Breakthrough pain. * Clindamycin 600mg IV q8hr.* * Aztreonam 1g [id number] - this dosing reflects 50% of regular dosing due to patient's CrCl of 10.34.* *Antibiotics chosen with consideration of penicillin G allergy. (2) PAD (peripheral artery disease) ICD Codes: I73.9 - Peripheral vascular disease, unspecified Status: Chronic Plan: Patient with history of PAD. Likely contributing to chronic ulcer on right anterior-lateral lower extremity. * See Plan for Ulcer of right lower leg. (3) ESRD (end stage renal disease) on dialysis ICD Codes: N18.6 - End stage renal disease; Z99.2 - Dependence on renal dialysis Status: Chronic Plan: Patient with history of ESRD. She receives dialysis on MWF at [facility] in [place]. Patient's clinical documentation manager is Dr. Ojeda. * Consult nephrology. * Dialysis per nephrology. (4) Renal mass ICD Codes: N28.89 - Other specified disorders of kidney and ureter Status: Acute Plan: CTA Runoff with evidence of densely peripherally calcified exophytic lesion arising from the far pole of the left kidney which is incompletely evaluated due to arterial phase technique only. * Further evaluation may be performed with renal mass MRI exam as clinically indicated. Per radiology, imaging not urgent and may be set-up as outpatient. Due to ESRD, radiology suggest MRI without IV contrast. (5) UTI (urinary tract infection) ICD Codes: N39.0 - UTI (urinary tract infection) Status: Acute Plan: UA 03/07: Light-red, cloudy, trace ketones, negative nitrite, large leukocyte esterase, 65 RBC, moderate bacteria. Urine culture pending. * See antibiotic management above. (6) Diabetes mellitus ICD Codes: E11.9 - Type 2 diabetes mellitus without complications Plan: Patient with history of DM Type II; recent HgbA1C 8.2. * Levemir 10 units HS - held due to hypoglycemic episode 03/08. * Low dose sliding scale. (7) Cardiovascular disease ICD Codes: I25.10 - Atherosclerotic heart disease of [place] coronary artery without angina pectoris Plan: Patient with history of CHF (combined systolic and diastolic), CAD and HTN. * EKG: Baseline artifact present sinus rhythm. ANTEROSEPTAL MYOCARDIAL INFARCTION , OF INDETERMINATE AGE. Nonspecific intraventricular conduction defect. ABNORMAL ECG. No significant change from prior electrocardiogram. * Troponin x3: 0.02. Elevation may be due to ESRD. * Patient denies chest pain. * Additional EKGs and Troponin levels pending. Will monitor closely. (8) Hepatitis C ICD Codes: B19.20 - Unspecified viral hepatitis C without hepatic coma Status: Chronic Plan: Patient with history of chronic hepatitis C; disease course unknown. * Liver enzymes within normal limits. 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 Alert but confused at baseline per rehabilitation facility. * Continue home medications. (10) Fluid, Electrolyte, Nutrition, and Prophylaxis Status: Acute Plan: Fluid: * Not indicated at this time. Electrolyte: * Monitor and replete as necessary. Nutrition: * Renal diet. Prophylaxis: * Ambulation. * SCD on left. * Heparin 5,000 units q8hr. (Christina Munoz MD R1) Problem Qualifiers (1) Ulcer of right lower leg: Qualified Codes: L97.919 - Non-pressure chronic ulcer of unspecified part of right lower leg with unspecified severity Christina Munoz MD R1 Mar 08, 2018 10:09 Steffany Johnson MD Mar 08, 2018 16:38
[2018-03-08] MEDS: HEPARIN SODIUM - SQ 10,000 UNITS/ML VIAL SQ SCH ×2 (10:15→16:00)
[2018-03-08] MEDS: AMIODARONE 200 MG TAB PO SCH (10:16)
[2018-03-08] MEDS: SODIUM CHLORIDE 0.9% FLUSH 10 ML FLUSH IV FLUSH SCH (10:16)
[2018-03-08] MEDS: ASPIRIN 81 MG CHEW TAB CHEW SCH (10:16)
[2018-03-08] MEDS: LOSARTAN 25 MG TAB PO SCH (10:16)
[2018-03-08] MEDS: CARVEDILOL 12.5 MG TAB PO SCH (10:16)
[2018-03-08] MEDS: VENLAFAXINE HCL XR 75 MG CAP PO SCH (10:17)
[2018-03-08] MEDS: FUROSEMIDE 40 MG TAB PO SCH ×2 (10:17→18:00)
[2018-03-08] MEDS: SEVELAMER CARBONATE 800 MG TAB PO SCH ×3 (10:17→18:00)
[2018-03-08] MEDS: DOCUSATE SODIUM 50 MG/SENNA 8.6 MG TAB PO SCH (10:17)
[2018-03-08] MEDS: VITAMIN B CMPLX/VITC/FOLIC AC CAP PO SCH (10:17)
[2018-03-08] MEDS: QUEtiapine FUMARATE 25 MG TAB PO SCH (10:17)
[2018-03-08] MEDS: ZINC SULFATE 220 MG CAP PO SCH (10:18)
[2018-03-08] MEDS: ASCORBIC ACID 500 MG TAB PO SCH (10:18)
[2018-03-08] MEDS: MULTIVITAMIN TAB PO SCH (10:18)
[2018-03-08] MEDS ORDERED: MONUPAK PO (11:32)
[2018-03-08] MEDS ORDERED: CLIN150C14 PO (11:32)
--- NOTE | 2018-03-08 11:35 | HHI.DCPOC ---
Discharge Care Plan Diagnosis: (1) Cardiovascular disease (2) Psychiatric disorder (3) Hepatitis C (4) Diabetes mellitus (5) UTI (urinary tract infection) (6) Renal mass (7) ESRD (end stage renal disease) on dialysis (8) Ulcer of right lower leg (9) PAD (peripheral artery disease) Goals to Promote Your Health * To prevent worsening of your condition and complications * To maintain your health at the optimal level Directions to Meet Your Goals Take your medications as prescribed Follow your dietary instruction Follow activity as directed Keep your appointments as scheduled Take your immunizations and boosters as scheduled If your symptoms worsen call your PCP, if no PCP go to Urgent Care Center or Emergency Room Smoking is Dangerous to Your Health. Avoid second hand smoke Call the 24-hour hour crisis hotline for domestic abuse at Christina Munoz MD R1 Mar 08, 2018 11:35
[2018-03-08] MEDS ORDERED: CLINDAMYCIN INJ 600 MG in SODIUM CHLORIDE 0.9% INJ 100 ML IV SCH ×2 (12:00→17:00)
[2018-03-08] MEDS: SODIUM THIOSULFATE INJ 25,000 MG in WATER STERILE FOR INJ 100 ML IV PRN (14:42)
== END 2018-03-08 18:45 | DRG 299 ==
LOC: NEPC 07:41 → NEDA 10:11 → OBSVTOIN 12:32 → NEDH 15:39 → N04B 20:34
PROVIDERS: ADMIT Family Medicine; ATTEND Family Medicine
PROC: 5A1D70Z Performance of Urinary Filtration, Intermittent, Less than 6 Hours Per Day (ICD-10-PCS; principal; 2018-03-06)
DX: I70.239 Atherosclerosis of native arteries of right leg with ulceration of unspecified site (principal); N18.6 End stage renal disease; I13.2 Hypertensive heart and chronic kidney disease with heart failure and with stage 5 chronic kidney disease, or end stage renal disease; E11.22 Type 2 diabetes mellitus with diabetic chronic kidney disease; F03.90 Unspecified dementia, unspecified severity, without behavioral disturbance, psychotic disturbance, mood disturbance, and anxiety; I50.42 Chronic combined systolic (congestive) and diastolic (congestive) heart failure; N39.0 Urinary tract infection, site not specified; L97.919 Non-pressure chronic ulcer of unspecified part of right lower leg with unspecified severity; E11.51 Type 2 diabetes mellitus with diabetic peripheral angiopathy without gangrene; E11.622 Type 2 diabetes mellitus with other skin ulcer; Z79.84 Long term (current) use of oral hypoglycemic drugs; I25.10 Atherosclerotic heart disease of native coronary artery without angina pectoris; B18.2 Chronic viral hepatitis C; Z99.2 Dependence on renal dialysis; N28.89 Other specified disorders of kidney and ureter; F32.9 Major depressive disorder, single episode, unspecified; F41.9 Anxiety disorder, unspecified; E83.59 Other disorders of calcium metabolism; F29 Unspecified psychosis not due to a substance or known physiological condition
CPT/HCPCS: 73590; 75635; 80048; 80053; 80307; 81001; 82140; 82306; 82947; 82948; 83605; 83970; 84100; 84484; 85025; 85027; 87040; 87086; 90935; 93005; 93922; 96374; 96375; J1644; J1815; J2270; J2405; Q9967